=== PATIENT | male | born 1940 | race Caucasian/White ===

== ENCOUNTER 2019-04-19 07:19 | Inpatient (IN) | payer MEDICARE ==
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
[2019-04-19 08:45] LABS: ABSOLUTE LYMPHOCYTES (AUTO) 0.8 10^3/uL (0.5-4.7); ABSOLUTE MONOCYTES (AUTO) 0.9 10^3/uL (0.1-1.4); ABSOLUTE NEUT (AUTO) 11.3 10^3/uL (1.7-8.2); BASOPHILS % (AUTO) 0.1 % (0-2); EOSINOPHILS % (AUTO) 0.1 % (0-6); HEMATOCRIT 34.7 % (37.9-51.0); HEMOGLOBIN 11.6 g/dL (13.5-17.0); LYMPHOCYTES % (AUTO) 6.4 % (13-45); MEAN CORPUSCULAR HEMOGLOBIN 30.1 pg (27.0-33.4); MEAN CORPUSCULAR HGB CONC 33.5 g/dL (32.0-36.0); MEAN CORPUSCULAR VOLUME 90 fl (80-97); MONOCYTES % (AUTO) 7.2 % (3-13); PLATELET COUNT 188 10^3/uL (150-450); RED BLOOD COUNT 3.86 10^6/uL (4.35-5.55); RED CELL DISTRIBUTION WIDTH 14.6 % (11.5-14.0); SEGMENTED NEUTROPHILS % (AUTO) 86.2 % (42-78); TOTAL CELLS COUNTED % (AUTO) 100 %
[2019-04-19 08:51] LABS: INTERNATIONAL RATION (INR) 1.07; PARTIAL THROMBOPLASTIN TIME 27.9 SEC (23.5-35.8); PROTHROMBIN TIME 14.5 SEC (11.4-15.4)
[2019-04-19 08:55] LABS: ALANINE AMINOTRANSFERASE 41 U/L (21-72); ALBUMIN 2.3 g/dL (3.5-5.0); ALKALINE PHOSPHATASE 54 U/L (38-126); ANION GAP 5 (5-19); ASPARTATE AMINO TRANSFERASE 27 U/L (17-59); BILIRUBIN,DIRECT 0.5 mg/dL (0.0-0.4); BILIRUBIN,TOTAL 0.9 mg/dL (0.2-1.3); BLOOD UREA NITROGEN 13 mg/dL (7-20); CALCIUM 7.7 mg/dL (8.4-10.2); CARBON DIOXIDE 24 mmol/L (22-30); CHLORIDE 96 mmol/L (98-107); CREATINE KINASE 24 U/L (55-170); GLUCOSE 127 mg/dL (75-110); POTASSIUM 4.3 mmol/L (3.6-5.0); SODIUM 125.3 mmol/L (137-145); TOTAL PROTEIN 4.7 g/dL (6.3-8.2)
--- NOTE | 2019-04-19 08:55 | RADIOLOGY REPORT (SQ) ---
EXAM DESCRIPTION: CT HEAD WITHOUT COMPLETED DATE/TIME: 04/19/2019 8:40 am REASON FOR STUDY: stroke like symptoms COMPARISON: 04/12/2016 TECHNIQUE: Axial images acquired through the brain without intravenous contrast. Images reviewed wi th bone, brain and subdural windows. Additional sagittal and coronal reconstructions were generated. Images stored on PACS. All CT scanners at this facility use dose modulation, iterative reconstruction, and/or weight based d osing when appropriate to reduce radiation dose to as low as reasonably achievable (ALARA). [facility]: Dose Right [facility]: CareDose [facility]: Dose Right [facility]: Teradose 4D [facility]: Logicworks RADIATION DOSE: CT Rad equipment meets quality standard of care and radiation dose reduction techniq ues were employed. CTDIvol: 53.2 mGy. DLP: 1070 mGy-cm.mGy. LIMITATIONS: None. FINDINGS: VENTRICLES: Prominent. CEREBRUM: No masses. No hemorrhage. No midline shift. Areas of low density in the white matter mos t likely due to chronic micro-vascular ischemic change. No evidence for acute infarction. Large old right MCA infarct is again noted. CEREBELLUM: No masses. No hemorrhage. No alteration of density. No evidence for acute infarction. EXTRAAXIAL SPACES: Age-related involutional change. No fluid collections. No masses. ORBITS AND GLOBE: No intra- or extraconal masses. Normal contour of globe without masses. CALVARIUM: No fracture. PARANASAL SINUSES: No fluid or mucosal thickening. SOFT TISSUES: No mass or hematoma. OTHER: No other significant finding. IMPRESSION: Diffuse cerebral atrophy and small-vessel ischemic changes. Large old right MCA infarct . No acute intracranial event. EVIDENCE OF ACUTE STROKE: NO. TECHNICAL DOCUMENTATION: JOB ID: [id number] Quality ID # [id number]: Final reports with documentation of one or more dose reduction techniques (e.g., Au tomated exposure control, adjustment of the mA and/or kV according to patient size, use of iterative reconstruction technique) 2010 [employer]- All Rights Reserved Reading location - IP/workstation name: [email or web address]
--- NOTE | 2019-04-19 08:56 | RADIOLOGY REPORT (SQ) ---
EXAM DESCRIPTION: CHEST SINGLE VIEW COMPLETED DATE/TIME: 04/19/2019 8:48 am REASON FOR STUDY: syncope COMPARISON: 04/12/2016 NUMBER OF VIEWS: One view. TECHNIQUE: Single frontal radiographic view of the chest acquired. LIMITATIONS: None. FINDINGS: LUNGS AND PLEURA: No opacities, masses or pneumothorax. No pleural effusion. MEDIASTINUM AND HILAR STRUCTURES: No masses. Contour normal. HEART AND VASCULAR STRUCTURES: Heart size is stable slightly enlarged. No failure. BONES: No acute findings. HARDWARE: None in the chest. OTHER: No other significant finding. IMPRESSION: NO SIGNIFICANT RADIOGRAPHIC FINDING IN THE CHEST. TECHNICAL DOCUMENTATION: JOB ID: [id number] [employer]- All Rights Reserved Reading location - IP/workstation name: [email or web address]
[2019-04-19 09:07] LABS: CREATINE KINASE MB 0.81 ng/mL (<4.55)
[2019-04-19 09:08] LABS: TROPONIN I < 0.012 ng/mL
[2019-04-19] MEDS: NORMAL SALINE 1000 ML 1,000 ML IV PRN ×3 (09:18→12:47)
[2019-04-19 09:36] LABS: APPEARANCE,URINE CLOUDY; BILIRUBIN,URINE NEGATIVE (NEGATIVE); COLOR,URINE YELLOW; GLUCOSE, URINE NEGATIVE (NEGATIVE); KETONES,URINE NEGATIVE (NEGATIVE); LEUKOCYTE ESTERASE,URINE MODERATE (NEGATIVE); NITRITE,URINE POSITIVE (NEGATIVE); PROTEIN,URINE 30 mg/dL (NEGATIVE); URINE SPECIFIC GRAVITY 1.013
[2019-04-19] MEDS ORDERED: CEFTRIAXONE 1 GM/D5W RTU 1 GM/50 ML RTUPB IV ONE (10:22)
[2019-04-19] MEDS ORDERED: LEVOFLOXACIN 500 MG/D5W RTU 500 MG/100 ML RTUPB IV SCH (11:30)
[2019-04-19] MEDS ORDERED: LEVALBUTEROL HCL NEB 0.63 MG/3 ML AMPUL NEB PRN (12:18)
--- NOTE | 2019-04-19 12:48 | PDOC H&P ---
History of Present Illness Admission Date/PCP: 04/19/19 12:18 Patient complains of: Came in c/o with difficulty in standing and weakness. History of Present Illness: ZOEY GRIER is a 78 year old male with history of 2 strokes involving the left side of the body he walks with assistance and a cane, hyperlipidemia, atrial fibrillation not on anticoagulation brought in by family with complaints of difficulty in ambulation unsteady gait. No history of falls at home no headaches reported. After calling the EMS he threw up 4 times small amount of liquidy material. No constipation reported no abdominal pain was reported no shortness of breath no chest pains reported. Patient has this bullous 5 regard lesions and as per the product examiner the taking is taking prednisone p.o. No history of fever at home. In the emergency room patient has a low-grade fever septic work-up was initiated lactic acid is 2.1 found to have blood pressure of systolic 70/50 and started on IV fluids. medical consult was called for further management. Past Medical History Cardiac Medical History: Reports: Hyperlipidema, Hypertension Pulmonary Medical History: Denies: Tuberculosis Endocrine Medical History: Reports: Diabetes Mellitus Type 2 Psychiatric Medical History: Reports: Depression Past Surgical History Past Surgical History: Reports: Orthopedic Surgery Denies: Appendectomy, Cholecystectomy, Tonsillectomy Social History Lives with: Spouse/Significant other Smoking Status: Unknown if Ever Smoked Frequency of Alcohol Use: None Hx Recreational Drug Use: No Drugs: None Hx Prescription Drug Abuse: No - Advance Directive Resuscitation Status: Full Code Surrogate healthcare decision maker:: Stacy Rizzo has the power of health care attorney. Family History Family History: Reviewed & Not Pertinent Parental Family History Reviewed: Yes - Family history of stroke and hypertension. Children Family History Reviewed: Yes Sibling(s) Family History Reviewed.: Yes Medication/Allergy Home Medications: Amlodipine Besylate [Norvasc 5 mg Tablet] 5 mg PO DAILY 04/19/19 Aspirin [Aspirin 325 mg Tablet] 325 mg PO DAILY 04/19/19 Carvedilol [Coreg 3.125 mg Tablet] 3.125 mg PO Q12 04/19/19 Fluoxetine HCl [Prozac 20 mg Capsule] 20 mg PO DAILY 04/19/19 Gabapentin [Neurontin 100 mg Capsule] 100 mg PO Q8 04/19/19 Lisinopril [Prinivil 2.5 mg Tablet] 2.5 mg PO DAILY 04/19/19 Prednisone [Deltasone 20 mg Tablet] 20 mg PO DAILY 04/19/19 Simvastatin [Zocor 40 mg Tablet] 40 mg PO DAILY 04/19/19 Tamsulosin HCl [Flomax 0.4 mg Cap.sr] 0.4 mg PO QHS 04/19/19 Allergies/Adverse Reactions: atorvastatin calcium [From Lipitor] Allergy (Verified 04/12/16 07:49) Review of Systems Constitutional: PRESENT: fatigue, weakness. ABSENT: fever(s), headache(s) Eyes: ABSENT: visual disturbances Ears: ABSENT: hearing changes Nose, Mouth, and Throat: ABSENT: sore throat Cardiovascular: ABSENT: chest pain, dyspnea on exertion, edema, orthropnea, palpitations Respiratory: ABSENT: cough, hemoptysis Gastrointestinal: PRESENT: nausea, vomiting Musculoskeletal: ABSENT: joint swelling Neurological: PRESENT: dizziness, weakness Psychiatric: ABSENT: anxiety, depression, homidical ideation, suicidal ideation Physical Exam Vital Signs: Temp Pulse Resp BP Pulse Ox 99.4 F 23 H 99/60 L 100 04/19/19 07:42 04/19/19 12:01 04/19/19 12:01 04/19/19 12:01 Intake & Output 04/18/19 04/19/19 04/20/19 06:59 06:59 06:59 Intake Total 2049 Balance 2049 Weight 65.4 kg General appearance: PRESENT: no acute distress Head exam: PRESENT: atraumatic Eye exam: PRESENT: PERRLA Neck exam: ABSENT: carotid bruit, JVD, lymphadenopathy, thyromegaly Respiratory exam: PRESENT: decreased breath sounds Cardiovascular exam: PRESENT: tachycardia GI/Abdominal exam: PRESENT: normal bowel sounds, soft. ABSENT: distended, guarding, mass, organolmegaly, rebound, tenderness Rectal exam: PRESENT: deferred Extremities exam: PRESENT: full ROM. ABSENT: calf tenderness, clubbing, pedal edema Neurological exam: PRESENT: alert, other - Patient has history of stroke involving the left side of the body. Psychiatric exam: PRESENT: appropriate affect, normal mood. ABSENT: homicidal ideation, suicidal ideation Results Laboratory Results: 04/19/19 07:34 04/19/19 07:34 04/19/19 04/19/19 04/19/19 07:34 07:34 09:14 WBC 13.0 H RBC 3.86 L Hgb 11.6 L Hct 34.7 L MCV 90 MCH 30.1 MCHC 33.5 RDW 14.6 H Plt Count 188 Seg Neutrophils % 86.2 H Lymphocytes % 6.4 L Monocytes % 7.2 Eosinophils % 0.1 Basophils % 0.1 Absolute Neutrophils 11.3 H Absolute Lymphocytes 0.8 Absolute Monocytes 0.9 Absolute Eosinophils 0.0 Absolute Basophils 0.0 Sodium 125.3 L Potassium 4.3 Chloride 96 L Carbon Dioxide 24 Anion Gap 5 BUN 13 Creatinine 0.76 Est GFR ( Amer) > 60 Est GFR (Non-Af Amer) > 60 Glucose 127 H Lactic Acid Calcium 7.7 L Total Bilirubin 0.9 AST 27 ALT 41 Alkaline Phosphatase 54 Total Protein 4.7 L Albumin 2.3 L Urine Color YELLOW Urine Appearance CLOUDY Urine pH 9.0 Ur Specific [place] 1.013 Urine Protein 30 H Urine Glucose (UA) NEGATIVE Urine Ketones NEGATIVE Urine Blood NEGATIVE Urine Nitrite POSITIVE H Ur Leukocyte Esterase MODERATE H Urine WBC (Auto) 53 Urine RBC (Auto) 59 04/19/19 10:05 WBC RBC Hgb Hct MCV MCH MCHC RDW Plt Count Seg Neutrophils % Lymphocytes % Monocytes % Eosinophils % Basophils % Absolute Neutrophils Absolute Lymphocytes Absolute Monocytes Absolute Eosinophils Absolute Basophils Sodium Potassium Chloride Carbon Dioxide Anion Gap BUN Creatinine Est GFR ( Amer) Est GFR (Non-Af Amer) Glucose Lactic Acid 2.1 Calcium Total Bilirubin AST ALT Alkaline Phosphatase Total Protein Albumin Urine Color Urine Appearance Urine pH Ur Specific [place] Urine Protein Urine Glucose (UA) Urine Ketones Urine Blood Urine Nitrite Ur Leukocyte Esterase Urine WBC (Auto) Urine RBC (Auto) 04/19/19 04/19/19 07:34 07:34 Creatine Kinase 24 L CK-MB (CK-2) 0.81 Troponin I < 0.012 Impressions: Chest X-Ray 04/19/19 08:12 IMPRESSION: NO SIGNIFICANT RADIOGRAPHIC FINDING IN THE CHEST. Head CT 04/19/19 08:12 IMPRESSION: Diffuse cerebral atrophy and small-vessel ischemic changes. Large old right MCA infarct. No acute intracranial event. EVIDENCE OF ACUTE STROKE: NO. Assessment and Plan - Diagnosis (1) Sepsis associated hypotension Is this a current diagnosis for this admission?: Yes Plan: 04/19/2019-most likely patient has a sepsis with hypotension. Unable to find the source. WBC count is within normal limits and lactic acid level is within normal limits. Patient has hyponatremia. Plan started on IV fluids normal saline at 75 cc/h, IV Rocephin 2 g daily, IV Levaquin 5 mg daily. Blood cultures urine cultures are pending. GI prophylaxis DVT prophylaxis initiated. (2) Atrial fibrillation Qualifiers: Atrial fibrillation type: unspecified Qualified Code(s): I48.91 - Unspecified atrial fibrillation Is this a current diagnosis for this admission?: No Plan: 04/19/2019-patient has history of atrial fibrillation not on anticoagulation. he is on Coreg 3.25 mg twice daily at home which was resumed. (3) History of CVA with residual deficit Is this a current diagnosis for this admission?: No Plan: 04/19/2019-patient has history of CVA 6 years ago involving the left side of the body power in the left upper arm is 1 /5 and the left lower leg is 2 x 5. Patient walks with assistance. (4) HTN (hypertension) Is this a current diagnosis for this admission?: No Plan: 04/19/2019-patient has history of hypertension he is on Coreg, lisinopril and amlodipine at home to restart Coreg and hold her lisinopril and amlodipine for today because of the low blood pressures with systolic blood pressure of 70. (5) Vomiting Qualifiers: Vomiting type: unspecified Vomiting Intractability: unspecified Nausea presence: without nausea Qualified Code(s): R11.11 - Vomiting without nausea Is this a current diagnosis for this admission?: Yes Plan: 04/19/2019-patient came in with complaints of nausea and vomitings vomited 4 times this morning plan is to do the KUB. Because of nausea and vomiting's unknown at this time. (6) Hyponatremia Is this a current diagnosis for this admission?: Yes Plan: 04/19/2019-serum sodium is 125 hyponatremia most likely secondary to poor oral intake associated with nausea and vomiting. Started on IV fluids normal saline 125 cc/h. - Time Time Spent with patient: 25-34 minutes Medications reviewed and adjusted accordingly: Yes Anticipated discharge: Home
[2019-04-19 13:54] LABS: CREATINE KINASE MB 2.71 ng/mL (<4.55); TROPONIN I 0.013 ng/mL
[2019-04-19] MEDS: GABAPENTIN 100 MG CAPSULE PO SCH ×2 (14:48→21:42)
--- NOTE | 2019-04-19 18:40 | EKG REPORT ---
SEVERITY:- ABNORMAL ECG - ATRIAL FIBRILLATION : Confirmed by: Que Sears MD 19-Apr-2019 18:40:12
[2019-04-19] MEDS: FAMOTIDINE 20 MG TABLET PO SCH (21:42)
[2019-04-19] MEDS: TAMSULOSIN HCL 0.4 MG CAP.SR.24H PO SCH (21:42)
[2019-04-19] MEDS: CARVEDILOL 3.125 MG TABLET PO SCH (21:42)
[2019-04-20] MEDS: NORMAL SALINE 1000 ML 1,000 ML IV PRN (03:00)
[2019-04-20 05:51] LABS: ABSOLUTE LYMPHOCYTES (AUTO) 0.7 10^3/uL (0.5-4.7); ABSOLUTE MONOCYTES (AUTO) 0.8 10^3/uL (0.1-1.4); BASOPHILS % (AUTO) 0.1 % (0-2); EOSINOPHILS % (AUTO) 0.4 % (0-6); HEMATOCRIT 31.3 % (37.9-51.0); HEMOGLOBIN 10.5 g/dL (13.5-17.0); LYMPHOCYTES % (AUTO) 5.7 % (13-45); MEAN CORPUSCULAR HEMOGLOBIN 30.2 pg (27.0-33.4); MEAN CORPUSCULAR HGB CONC 33.5 g/dL (32.0-36.0); MEAN CORPUSCULAR VOLUME 90 fl (80-97); MONOCYTES % (AUTO) 6.5 % (3-13); PLATELET COUNT 155 10^3/uL (150-450); RED BLOOD COUNT 3.48 10^6/uL (4.35-5.55); RED CELL DISTRIBUTION WIDTH 14.7 % (11.5-14.0); SEGMENTED NEUTROPHILS % (AUTO) 87.3 % (42-78); TOTAL CELLS COUNTED % (AUTO) 100 %; WHITE BLOOD COUNT 12.6 10^3/uL (4.0-10.5)
[2019-04-20 06:17] LABS: ALANINE AMINOTRANSFERASE 31 U/L (21-72); ALKALINE PHOSPHATASE 50 U/L (38-126); ANION GAP 5 (5-19); ASPARTATE AMINO TRANSFERASE 15 U/L (17-59); BILIRUBIN,DIRECT 0.3 mg/dL (0.0-0.4); BILIRUBIN,TOTAL 0.5 mg/dL (0.2-1.3); BLOOD UREA NITROGEN 12 mg/dL (7-20); CALCIUM 7.7 mg/dL (8.4-10.2); CARBON DIOXIDE 21 mmol/L (22-30); CHLORIDE 100 mmol/L (98-107); GLUCOSE 135 mg/dL (75-110); POTASSIUM 4.3 mmol/L (3.6-5.0); SODIUM 125.5 mmol/L (137-145); TOTAL PROTEIN 4.2 g/dL (6.3-8.2)
[2019-04-20] MEDS: GABAPENTIN 100 MG CAPSULE PO SCH ×3 (06:28→21:57)
[2019-04-20 09:59] LABS: URINE CREATININE 15.9 mg/dL (22-328)
[2019-04-20] MEDS ORDERED: ASPIRIN 81 MG TABLET, CHEWABLE PO SCH (10:00)
[2019-04-20] MEDS ORDERED: (PENDING PHARMACY ID) (Lisinopril [Prinivil 2.5 Mg Tablet] 2.5 MG) PO SCH (10:00)
[2019-04-20] MEDS ORDERED: ASPIRIN 325 MG TABLET PO SCH (10:00)
[2019-04-20] MEDS ORDERED: SIMVASTATIN 40 MG TABLET PO SCH (10:00)
[2019-04-20] MEDS ORDERED: LISINOPRIL 5 MG TABLET PO SCH (10:00)
[2019-04-20] MEDS ORDERED: LEVOFLOXACIN 500 MG/D5W RTU 500 MG/100 ML RTUPB IV SCH (10:00)
[2019-04-20] MEDS: PREDNISONE 20 MG TABLET PO SCH (11:21)
[2019-04-20] MEDS: FAMOTIDINE 20 MG TABLET PO SCH ×2 (11:22→21:57)
[2019-04-20] MEDS: ENOXAPARIN SODIUM INJ 40 MG/0.4 ML DISP.SYRIN SUBCUT SCH (11:22)
[2019-04-20] MEDS: FLUOXETINE HCL 20 MG CAPSULE PO SCH (11:22)
[2019-04-20] MEDS: ASPIRIN 325 MG TABLET PO SCH (11:22)
[2019-04-20] MEDS: CEFTRIAXONE 2 GM/D5W RTU 2 GM/50 ML RTUPB IV SCH (11:22)
[2019-04-20] MEDS: CARVEDILOL 3.125 MG TABLET PO SCH ×2 (11:22→21:57)
[2019-04-20 14:24] LABS: APPEARANCE,URINE CLEAR; BILIRUBIN,URINE NEGATIVE (NEGATIVE); COLOR,URINE STRAW; GLUCOSE, URINE >=500 mg/dL (NEGATIVE); KETONES,URINE NEGATIVE (NEGATIVE); LEUKOCYTE ESTERASE,URINE SMALL (NEGATIVE); NITRITE,URINE NEGATIVE (NEGATIVE); PROTEIN,URINE NEGATIVE (NEGATIVE); URINE SPECIFIC GRAVITY 1.005; UROBILINOGEN,URINE NEGATIVE mg/dL (<2.0)
--- NOTE | 2019-04-20 15:20 | PDOC PROGRESS REPORT ---
Subjective Progress Note for:: 04/20/19 Subjective:: ZOEY GRIER is a 78 year old male with history of 2 strokes involving the left side of the body he walks with assistance and a cane, hyperlipidemia, atrial fibrillation not on anticoagulation brought in by family with complaints of difficulty in ambulation unsteady gait. No history of falls at home no headaches reported. After calling the EMS he threw up 4 times small amount of liquidy material. No constipation reported no abdominal pain was reported no shortness of breath no chest pains reported. Patient has this bullous 5 regard lesions and as per the fitting room inspector the taking is taking prednisone p.o. No history of fever at home. In the emergency room patient has a low-grade fever septic work-up was initiated lactic acid is 2.1 found to have blood pressure of systolic 70/50 and started on IV fluids. medical consult was called for further management. 04/20/2019. Assumed care today. Vitals within normal limits, patient alert oriented x3 in no apparent distress, denies any fever, chills, nausea, vomiting, diarrhea, constipation or any urinary symptoms. SBP 855003, T-max 97.4, pulse 5568, RR 1618, SPO2 98% RA. WBC 8.0, hemoglobin 11.2, platelets 170, calcium 7.9, proBNP 2360, urine creatinine 15.9, urine sodium 68, globin A1c 6.3, Reason For Visit: HYPOTENSION Physical Exam Vital Signs: Temp Pulse Resp BP Pulse Ox 99.0 F 70 16 133/74 H 98 04/20/19 07:37 04/20/19 07:37 04/20/19 07:37 04/20/19 07:37 04/20/19 07:37 Intake & Output 04/19/19 04/20/19 04/21/19 06:59 06:59 06:59 Intake Total 3350 478 Output Total 1150 Balance 2200 478 Weight 66.1 kg General appearance: PRESENT: no acute distress, well-developed, well-nourished Head exam: PRESENT: atraumatic, normocephalic Respiratory exam: PRESENT: clear to auscultation yue. ABSENT: rales, rhonchi, wheezes Cardiovascular exam: PRESENT: RRR. ABSENT: diastolic murmur, rubs, systolic murmur GI/Abdominal exam: PRESENT: normal bowel sounds, soft. ABSENT: distended, guarding, mass, organolmegaly, rebound, tenderness Extremities exam: PRESENT: full ROM. ABSENT: calf tenderness, clubbing, pedal edema Neurological exam: PRESENT: alert, awake, oriented to person, oriented to place, oriented to time, CN II-XII grossly intact. ABSENT: motor sensory deficit - Le ft-sided hemiparesis. Chronic. Skin exam: PRESENT: other - Numerous scaly lesions residual from recent pemphigoid flare. Does not seem to be infected. Results Laboratory Results: 04/20/19 05:21 04/20/19 05:21 04/19/19 04/20/19 04/20/19 14:53 05:21 05:21 WBC 12.6 H RBC 3.48 L Hgb 10.5 L Hct 31.3 L MCV 90 MCH 30.2 MCHC 33.5 RDW 14.7 H Plt Count 155 Seg Neutrophils % 87.3 H Lymphocytes % 5.7 L Monocytes % 6.5 Eosinophils % 0.4 Basophils % 0.1 Absolute Neutrophils 11.0 H Absolute Lymphocytes 0.7 Absolute Monocytes 0.8 Absolute Eosinophils 0.0 Absolute Basophils 0.0 Sodium 125.5 L Potassium 4.3 Chloride 100 Carbon Dioxide 21 L Anion Gap 5 BUN 12 Creatinine 0.59 Est GFR ( Amer) > 60 Est GFR (Non-Af Amer) > 60 Glucose 135 H Lactic Acid 1.5 Calcium 7.7 L Total Bilirubin 0.5 AST 15 L ALT 31 Alkaline Phosphatase 50 Total Protein 4.2 L Albumin 2.0 L Urine Color Urine Appearance Urine pH Ur Specific [place] Urine Protein Urine Glucose (UA) Urine Ketones Urine Blood Urine Nitrite Ur Leukocyte Esterase Urine WBC (Auto) Urine RBC (Auto) 04/20/19 09:06 WBC RBC Hgb Hct MCV MCH MCHC RDW Plt Count Seg Neutrophils % Lymphocytes % Monocytes % Eosinophils % Basophils % Absolute Neutrophils Absolute Lymphocytes Absolute Monocytes Absolute Eosinophils Absolute Basophils Sodium Potassium Chloride Carbon Dioxide Anion Gap BUN Creatinine Est GFR ( Amer) Est GFR (Non-Af Amer) Glucose Lactic Acid Calcium Total Bilirubin AST ALT Alkaline Phosphatase Total Protein Albumin Urine Color STRAW Urine Appearance CLEAR Urine pH 7.0 Ur Specific [place] 1.005 Urine Protein NEGATIVE Urine Glucose (UA) >=500 H Urine Ketones NEGATIVE Urine Blood NEGATIVE Urine Nitrite NEGATIVE Ur Leukocyte Esterase SMALL H Urine WBC (Auto) 9 Urine RBC (Auto) 0 04/19/19 04/19/19 04/19/19 07:34 07:34 12:13 Creatine Kinase 24 L CK-MB (CK-2) 0.81 2.71 Troponin I < 0.012 0.013 NT-Pro-B Natriuret Pep 04/20/19 05:21 Creatine Kinase CK-MB (CK-2) Troponin I NT-Pro-B Natriuret Pep 2360 H Impressions: Chest X-Ray 04/19/19 08:12 IMPRESSION: NO SIGNIFICANT RADIOGRAPHIC FINDING IN THE CHEST. Head CT 04/19/19 08:12 IMPRESSION: Diffuse cerebral atrophy and small-vessel ischemic changes. Large old right MCA infarct. No acute intracranial event. EVIDENCE OF ACUTE STROKE: NO. Assessment and Plan - Diagnosis (1) Sepsis associated hypotension Is this a current diagnosis for this admission?: Yes Plan: Most likely source UTI. Vitals within normal limits. Day 2 IV ceftriaxone. Cultures no growth so far. Follow-up cultures. Will obtain urine culture. Continue telemetry, monitor volume status, continue IV fluids guided by volume status. (2) Hyponatremia Is this a current diagnosis for this admission?: Yes Plan: Hypovolemic hyponatremia. 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 Unsure how long he has been on steroids. Restart steroids. Consult nephrology. Daily BMP, monitor for seizures. (3) Urinary tract infection Qualifiers: Urinary tract infection type: site unspecified Hematuria presence: without hematuria Qualified Code(s): N39.0 - Urinary tract infection, site not specified Is this a current diagnosis for this admission?: Yes Plan: Likely due to gram-negative rods including E. coli. Day 2 IV ceftriaxone. Blood cultures negative so far. Urine culture are ordered. (4) Diabetes mellitus type 2 in nonobese Is this a current diagnosis for this admission?: No Plan: Hemoglobin A1c 6.4. Likely worsened by chronic steroid use for bullous pemphigoid. Continue Accu-Chek, diabetic diet, sliding scale insulin, pre-meal insulin, long-acting insulin. Outpatient PCP follow-up. (5) History of CVA with residual deficit Is this a current diagnosis for this admission?: No Plan: History of right CVA. History of right carotid occlusion. Persistent left-sided hemiparesis. Continue aspirin, high intensity statins, monitor BP. Continue physical therapy. Patient has good care at home, lives with a partner who is also POA. (6) Hyperlipidemia Is this a current diagnosis for this admission?: No Plan: ASCVD 63.5%. Continue simvastatin 80 mg p.o. daily. Continue diet and lifestyle modification. Patient is allergic to atorvastatin. (7) Atrial fibrillation Qualifiers: Atrial fibrillation type: unspecified Qualified Code(s): I48.91 - Unspecified atrial fibrillation Is this a current diagnosis for this admission?: No Plan: History of chronic A. fib. CHADs Score 6 Rate controlled. Not anticoagulated. Continue beta-blockers, aspirin, statins. (8) Carotid stenosis, right Is this a current diagnosis for this admission?: No Plan: History of right carotid occlusion. Patient has refused endarterectomy in the past. Continue statins, aspirin, optimize blood pressure. (9) HTN (hypertension) Is this a current diagnosis for this admission?: No Plan: Euvolemic. Continue Coreg, lisinopril, adjust meds as needed. Outpatient PCP follow-up. (10) Hx of pemphigoid Is this a current diagnosis for this admission?: No Plan: Continue steroids. Currently not on flare. As per family patient is on a taper dose. Contact fitting room inspector.
[2019-04-20 15:50] LABS: ANION GAP 5 (5-19); BLOOD UREA NITROGEN 10 mg/dL (7-20); CALCIUM 7.8 mg/dL (8.4-10.2); CARBON DIOXIDE 22 mmol/L (22-30); CHLORIDE 99 mmol/L (98-107); GLUCOSE 217 mg/dL (75-110); POTASSIUM 4.4 mmol/L (3.6-5.0); SODIUM 126.1 mmol/L (137-145)
[2019-04-20] MEDS: SIMVASTATIN 40 MG TABLET PO SCH (21:56)
[2019-04-20] MEDS: TAMSULOSIN HCL 0.4 MG CAP.SR.24H PO SCH (21:57)
[2019-04-21] MEDS: GABAPENTIN 100 MG CAPSULE PO SCH ×3 (05:07→21:07)
[2019-04-21 06:06] LABS: HEMATOCRIT 33.2 % (37.9-51.0); HEMOGLOBIN 11.2 g/dL (13.5-17.0); MEAN CORPUSCULAR HEMOGLOBIN 30.3 pg (27.0-33.4); MEAN CORPUSCULAR HGB CONC 33.9 g/dL (32.0-36.0); MEAN CORPUSCULAR VOLUME 90 fl (80-97); PLATELET COUNT 170 10^3/uL (150-450); RED BLOOD COUNT 3.71 10^6/uL (4.35-5.55); RED CELL DISTRIBUTION WIDTH 14.7 % (11.5-14.0)
[2019-04-21 06:17] LABS: ALANINE AMINOTRANSFERASE 27 U/L (21-72); ALBUMIN 2.2 g/dL (3.5-5.0); ALKALINE PHOSPHATASE 58 U/L (38-126); ANION GAP 5 (5-19); ASPARTATE AMINO TRANSFERASE 13 U/L (17-59); BILIRUBIN,DIRECT 0.3 mg/dL (0.0-0.4); BILIRUBIN,TOTAL 0.3 mg/dL (0.2-1.3); BLOOD UREA NITROGEN 12 mg/dL (7-20); CALCIUM 7.9 mg/dL (8.4-10.2); CARBON DIOXIDE 21 mmol/L (22-30); CHLORIDE 100 mmol/L (98-107); GLUCOSE 251 mg/dL (75-110); POTASSIUM 4.5 mmol/L (3.6-5.0); SODIUM 126.2 mmol/L (137-145); TOTAL PROTEIN 4.6 g/dL (6.3-8.2)
[2019-04-21 06:53] LABS: ABSOLUTE LYMPHOCYTES# (MANUAL) 0.3 10^3/uL (0.5-4.7); ABSOLUTE MONOCYTES # (MANUAL) 0.2 10^3/uL (0.1-1.4); BASOPHILS % (MANUAL) 0 % (0-2); EOSINOPHILS % (MANUAL) 1 % (0-6); LYMPHOCYTES % (MANUAL) 4 % (13-45); MONOCYTES % (MANUAL) 3 % (3-13); PLATELET COMMENT ADEQUATE; SEGMENTED NEUTROPHILS % (MAN) 92 % (42-78); TOTAL CELLS COUNTED 100
[2019-04-21 06:54] LABS: ANISOCYTOSIS SLIGHT; BURR CELLS 1+; OVALOCYTES SLIGHT
[2019-04-21] MEDS: ASPIRIN 325 MG TABLET PO SCH (10:09)
[2019-04-21] MEDS: PREDNISONE 20 MG TABLET PO SCH (10:10)
[2019-04-21] MEDS: FLUOXETINE HCL 20 MG CAPSULE PO SCH (10:10)
[2019-04-21] MEDS: FAMOTIDINE 20 MG TABLET PO SCH ×2 (10:10→21:07)
[2019-04-21] MEDS: CARVEDILOL 3.125 MG TABLET PO SCH ×2 (10:10→21:07)
[2019-04-21] MEDS: CEFTRIAXONE 2 GM/D5W RTU 2 GM/50 ML RTUPB IV SCH (10:11)
[2019-04-21] MEDS: ENOXAPARIN SODIUM INJ 40 MG/0.4 ML DISP.SYRIN SUBCUT SCH (10:15)
--- NOTE | 2019-04-21 10:18 | PDOC PROGRESS REPORT ---
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 No history of falls at home no headaches reported. After calling the EMS he threw up 4 times small amount of liquidy material. No constipation reported no abdominal pain was reported no shortness of breath no chest pains reported. Patient has this bullous 5 regard lesions and as per the neck band setter the taking is taking prednisone p.o. No history of fever at home. In the emergency room patient has a low-grade fever septic work-up was initiated lactic acid is 2.1 found to have blood pressure of systolic 70/50 and started on IV fluids. medical consult was called for further management. 04/20/2019. Assumed care today. Vitals within normal limits, patient alert oriented x3 in no apparent distress, denies any fever, chills, nausea, vomiting, diarrhea, constipation or any urinary symptoms. 04/21/2019. No acute events overnight, patient is accompanied by his partner who is also his POA. She is a primary caregiver. Patient sitting comfortably in his bed in no apparent distress, denies any fever, chills, nausea, vomiting, diarrhea, constipation or any urinary symptoms. Reason For Visit: HYPOTENSION Physical Exam Vital Signs: Temp Pulse Resp BP Pulse Ox 97.4 F 68 16 151/71 H 98 04/21/19 07:35 04/21/19 08:00 04/21/19 08:00 04/21/19 07:35 04/21/19 08:00 Intake & Output 04/20/19 04/21/19 04/22/19 06:59 06:59 06:59 Intake Total 3350 1603 Output Total 1150 2200 Balance 2200 -597 Weight 66.1 kg 64.7 kg General appearance: PRESENT: no acute distress, well-developed, well-nourished Head exam: PRESENT: atraumatic, normocephalic Respiratory exam: PRESENT: clear to auscultation yue. ABSENT: rales, rhonchi, wheezes Cardiovascular exam: PRESENT: RRR. ABSENT: diastolic murmur, rubs, systolic murmur GI/Abdominal exam: PRESENT: normal bowel sounds, soft. ABSENT: distended, guarding, mass, organolmegaly, rebound, tenderness Extremities exam: PRESENT: full ROM. ABSENT: calf tenderness, clubbing, pedal edema Neurological exam: PRESENT: alert, awake, oriented to person, oriented to place, oriented to time, oriented to situation, CN II-XII grossly intact, motor sensory deficit - Left-sided hemiparesis. No acute changes. Skin exam: PRESENT: other - Numerous dry scaly skin lesions residual from healing pemphigoid flare. No signs of infection. Results Laboratory Results: 04/21/19 05:17 04/21/19 05:17 04/20/19 04/20/19 04/21/19 09:06 15:11 05:17 WBC 8.0 RBC 3.71 L Hgb 11.2 L Hct 33.2 L MCV 90 MCH 30.3 MCHC 33.9 RDW 14.7 H Plt Count 170 Seg Neutrophils % Not Reportable Lymphocytes % Not Reportable Monocytes % Not Reportable Eosinophils % Not Reportable Basophils % Not Reportable Absolute Neutrophils Not Reportable Absolute Lymphocytes Not Reportable Absolute Monocytes Not Reportable Absolute Eosinophils Not Reportable Absolute Basophils Not Reportable Sodium 126.1 L Potassium 4.4 Chloride 99 Carbon Dioxide 22 Anion Gap 5 BUN 10 Creatinine 0.55 Est GFR ( Amer) > 60 Est GFR (Non-Af Amer) > 60 Glucose 217 H Calcium 7.8 L Magnesium Total Bilirubin AST ALT Alkaline Phosphatase Total Protein Albumin Urine Color STRAW Urine Appearance CLEAR Urine pH 7.0 Ur Specific [place] 1.005 Urine Protein NEGATIVE Urine Glucose (UA) >=500 H Urine Ketones NEGATIVE Urine Blood NEGATIVE Urine Nitrite NEGATIVE Ur Leukocyte Esterase SMALL H Urine WBC (Auto) 9 Urine RBC (Auto) 0 04/21/19 05:17 WBC RBC Hgb Hct MCV MCH MCHC RDW Plt Count Seg Neutrophils % Lymphocytes % Monocytes % Eosinophils % Basophils % Absolute Neutrophils Absolute Lymphocytes Absolute Monocytes Absolute Eosinophils Absolute Basophils Sodium 126.2 L Potassium 4.5 Chloride 100 Carbon Dioxide 21 L Anion Gap 5 BUN 12 Creatinine 0.49 L Est GFR ( Amer) > 60 Est GFR (Non-Af Amer) > 60 Glucose 251 H Calcium 7.9 L Magnesium 1.9 Total Bilirubin 0.3 AST 13 L ALT 27 Alkaline Phosphatase 58 Total Protein 4.6 L Albumin 2.2 L Urine Color Urine Appearance Urine pH Ur Specific [place] Urine Protein Urine Glucose (UA) Urine Ketones Urine Blood Urine Nitrite Ur Leukocyte Esterase Urine WBC (Auto) Urine RBC (Auto) 04/19/19 04/19/19 04/19/19 07:34 07:34 12:13 Creatine Kinase 24 L CK-MB (CK-2) 0.81 2.71 Troponin I < 0.012 0.013 NT-Pro-B Natriuret Pep 04/20/19 05:21 Creatine Kinase CK-MB (CK-2) Troponin I NT-Pro-B Natriuret Pep 2360 H Impressions: Chest X-Ray 04/19/19 08:12 IMPRESSION: NO SIGNIFICANT RADIOGRAPHIC FINDING IN THE CHEST. Head CT 04/19/19 08:12 IMPRESSION: Diffuse cerebral atrophy and small-vessel ischemic changes. Large old right MCA infarct. No acute intracranial event. EVIDENCE OF ACUTE STROKE: NO. Assessment and Plan - Diagnosis (1) Sepsis associated hypotension Is this a current diagnosis for this admission?: Yes Plan: Most likely source UTI. 04/21/2019: SBP 425859, T-max 97.4, pulse 5568, RR 1618, SPO2 98% RA. WBC 8.0, hemoglobin 11.2, platelets 170, calcium 7.9, proBNP 2360 Day 3 IV ceftriaxone. Blood and urine culture no growth so far. Follow-up cultures. Continue telemetry, monitor volume status, continue IV fluids guided by volume status. (2) Hyponatremia Is this a current diagnosis for this admission?: Yes Plan: Hypovolemic hyponatremia. 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 Unsure how long he has been on steroids. Restart steroids. Consult nephrology. Daily BMP, monitor for seizures. (3) Urinary tract infection Qualifiers: Urinary tract infection type: site unspecified Hematuria presence: without hematuria Qualified Code(s): N39.0 - Urinary tract infection, site not specified Is this a current diagnosis for this admission?: Yes Plan: Likely due to gram-negative rods including E. coli. Day 3/5 IV ceftriaxone. Blood cultures negative so far. Urine culture are ordered. (4) Diabetes mellitus type 2 in nonobese Is this a current diagnosis for this admission?: No Plan: Hemoglobin A1c 6.4. Likely worsened by chronic steroid use for bullous pemphigoid. Continue Accu-Chek, diabetic diet, sliding scale insulin, pre-meal insulin, long-acting insulin. Outpatient PCP follow-up. (5) History of CVA with residual deficit Is this a current diagnosis for this admission?: No Plan: History of right CVA. History of right carotid occlusion. Persistent left-sided hemiparesis. Continue aspirin, high intensity statins, monitor BP. Continue physical therapy. Patient has good care at home, lives with a partner who is also POA. (6) Hyperlipidemia Is this a current diagnosis for this admission?: No Plan: ASCVD 63.5%. Continue simvastatin 80 mg p.o. daily. Continue diet and lifestyle modification. Patient is allergic to atorvastatin. (7) Atrial fibrillation Qualifiers: Atrial fibrillation type: unspecified Qualified Code(s): I48.91 - Unspecified atrial fibrillation Is this a current diagnosis for this admission?: No Plan: History of chronic A. fib. CHADs Score 6 Rate controlled. Not anticoagulated. Continue beta-blockers, aspirin, statins. (8) Carotid stenosis, right Is this a current diagnosis for this admission?: No Plan: History of right carotid occlusion. Patient has refused endarterectomy in the past. Continue statins, aspirin, optimize blood pressure. (9) HTN (hypertension) Is this a current diagnosis for this admission?: No Plan: Euvolemic. Continue Coreg, lisinopril, adjust meds as needed. Outpatient PCP follow-up. (10) Hx of pemphigoid Is this a current diagnosis for this admission?: No Plan: Continue steroids. Currently not on flare. As per family patient is on a taper dose. Contact neck band setter.
--- NOTE | 2019-04-21 13:06 | XCELERA REPORT ---
[address] [id number] Transthoracic Echocardiogram Report Name: ZOEY GRIER Age: 78 yrs Gender: Male : 1940 Patient Status: Inpatient Patient Location: [facility]^A Study Date: 04/21/2019 10:34 AM Height: 69 in Weight: 145 lb BSA: 1.8 m2 Reason For Study: acute chf Ordering Physician: AURORA HUNT Performed By: Chago Nelson Interpretation Summary Study quality suboptimal. LVEF appears normal at 65-70%. RV systolic function appears normal. The right ventricular systolic function is normal. The transmitral spectral Doppler flow pattern is abnormal for age. AV leaflets appears focally thickened/calcified with trace to mild aortic regurgitation. There is a mild amount of mitral regurgitation Pericardium not well visualized to rule out small effusion/ pericardial thickening. The aortic root is normal size. MMode/2D Measurements & Calculations RVDd: 2.3 cm LVIDd: 4.8 cm FS: 45.4 % Ao root diam: 3.6 cm IVSd: 1.0 cm LVIDs: 2.6 cm EDV(Teich): 105.5 ml LVPWd: 0.81 cm ESV(Teich): 24.6 ml Ao root area: 10.0 cm2 EF(Teich): 76.6 % LVOT diam: 1.9 cm LVOT area: 2.8 cm2 Doppler Measurements & Calculations MV E max guillermo: MV dec slope: Ao V2 max: LV V1 max P.9 cm/sec 351.8 cm/sec2 154.8 cm/sec 7.9 mmHg MV A max guillermo: MV dec time: 0.24 sec Ao max PG: LV V1 max: 47.5 cm/sec 9.6 mmHg 140.4 cm/sec MV E/A: 1.7 KATINA(V,D): 2.5 cm2 PA V2 max: 89.4 cm/sec PA max P.2 mmHg Left Ventricle The left ventricular ejection fraction is normal. LV EF is 65-70%. The transmitral spectral Doppler flow pattern is abnormal for age. Right Ventricle The right ventricular systolic function is normal. Atria No atrial dimensions provided but visually RA aappears normal sized. No atrial dimensions provided. Mitral Valve MV leaflets appear focally thickened with preserved opening. There is a mild amount of mitral regurgitation. Aortic Valve AV leaflets appear focally thickened/ calcified but appear to open well. There is a peak gradient of 9.58 mm of Hg. There is a trace to mild amount of aortic regurgitation. Tricuspid Valve Partially visualized. Tricuspid regurgitation jet envelope not well defined to measure RV systolic pressure accurately. RVSP could not be estimated. Pulmonic Valve The pulmonic valve is not well visualized. Great Vessels The aortic root is normal size. The inferior vena cava was not well visualized. Effusions Pericardium not well visualized to rule out small effusion/ pericardial thickening. : AURORA HUNT > Arben Crisostomo
[2019-04-21] MEDS: LISINOPRIL 5 MG TABLET PO SCH (14:05)
[2019-04-21] MEDS: SIMVASTATIN 40 MG TABLET PO SCH (21:07)
[2019-04-21] MEDS: TAMSULOSIN HCL 0.4 MG CAP.SR.24H PO SCH (21:07)
[2019-04-22] MEDS: GABAPENTIN 100 MG CAPSULE PO SCH ×3 (05:48→21:18)
[2019-04-22 08:09] LABS: BLOOD UREA NITROGEN 10 mg/dL (7-20); CALCIUM 8.3 mg/dL (8.4-10.2); CHLORIDE 99 mmol/L (98-107); GLUCOSE 168 mg/dL (75-110); POTASSIUM 4.3 mmol/L (3.6-5.0)
[2019-04-22 08:15] LABS: CARBON DIOXIDE 24 mmol/L (22-30); SODIUM 127.4 mmol/L (137-145)
[2019-04-22 08:18] LABS: ANION GAP 4 (5-19)
[2019-04-22] MEDS: CEFTRIAXONE 2 GM/D5W RTU 2 GM/50 ML RTUPB IV SCH (09:42)
[2019-04-22] MEDS: ASPIRIN 325 MG TABLET PO SCH (09:43)
[2019-04-22] MEDS: PREDNISONE 20 MG TABLET PO SCH (09:43)
[2019-04-22] MEDS: FAMOTIDINE 20 MG TABLET PO SCH ×2 (09:43→21:18)
[2019-04-22] MEDS: CARVEDILOL 3.125 MG TABLET PO SCH ×2 (09:43→21:18)
[2019-04-22] MEDS: FLUOXETINE HCL 20 MG CAPSULE PO SCH (09:43)
[2019-04-22] MEDS: ENOXAPARIN SODIUM INJ 40 MG/0.4 ML DISP.SYRIN SUBCUT SCH (09:44)
--- NOTE | 2019-04-22 10:15 | PDOC PROGRESS REPORT ---
Subjective Progress Note for:: 04/22/19 Subjective:: ZOEY GRIER is a 78 year old male with history of 2 strokes involving the left side of the body he walks with assistance and a cane, hyperlipidemia, atrial fibrillation not on anticoagulation brought in by family with complaints of difficulty in ambulation unsteady gait. No history of falls at home no headaches reported. After calling the EMS he threw up 4 times small amount of liquidy material. No constipation reported no abdominal pain was reported no shortness of breath no chest pains reported. Patient has this bullous 5 regard lesions and as per the school crossing guard supervisor the taking is taking prednisone p.o. No history of fever at home. In the emergency room patient has a low-grade fever septic work-up was initiated lactic acid is 2.1 found to have blood pressure of systolic 70/50 and started on IV fluids. medical consult was called for further management. 04/20/2019. Assumed care today. Vitals within normal limits, patient alert oriented x3 in no apparent distress, denies any fever, chills, nausea, vomiting, diarrhea, constipation or any urinary symptoms. 04/21/2019. No acute events overnight, patient is accompanied by his partner who is also his POA. She is a primary caregiver. Patient sitting comfortably in his bed in no apparent distress, denies any fever, chills, nausea, vomiting, diarrhea, constipation or any urinary symptoms. 04/22/2019. No acute events overnight. Accompanied by his POA. Operative with physical examination, does not appear to be any distress. P.o. tolerant and having normal bowel and bladder movements. Denies any fever, nausea, chills, diarrhea, constipation or any urinary symptoms. Reason For Visit: HYPOTENSION Physical Exam Vital Signs: Temp Pulse Resp BP Pulse Ox 98.1 F 63 17 154/94 H 96 04/22/19 07:37 04/22/19 07:37 04/22/19 07:37 04/22/19 07:37 04/22/19 07:37 Intake & Output 04/21/19 04/22/19 04/23/19 06:59 06:59 06:59 Intake Total 1603 1030 Output Total 2200 2800 Balance -597 -9400 Weight 64.7 kg 64 kg General appearance: PRESENT: no acute distress, well-developed, well-nourished Head exam: PRESENT: atraumatic, normocephalic Respiratory exam: PRESENT: clear to auscultation yue. ABSENT: rales, rhonchi, wheezes Cardiovascular exam: PRESENT: RRR. ABSENT: diastolic murmur, rubs, systolic murmur Pulses: PRESENT: normal dorsalis pedis pul GI/Abdominal exam: PRESENT: normal bowel sounds, soft. ABSENT: distended, guarding, mass, organolmegaly, rebound, tenderness Neurological exam: PRESENT: alert, awake, oriented to person, oriented to place, oriented to time, oriented to situation, CN II-XII grossly intact, motor sensory deficit - Right-sided hemiparesis, chronic. Unchanged. Results Laboratory Results: 04/21/19 05:17 04/22/19 07:43 04/22/19 07:43 Sodium 127.4 L Potassium 4.3 Chloride 99 Carbon Dioxide 24 Anion Gap 4 L BUN 10 Creatinine 0.49 L Est GFR ( Amer) > 60 Est GFR (Non-Af Amer) > 60 Glucose 168 H Calcium 8.3 L 04/19/19 04/19/19 04/19/19 07:34 07:34 12:13 Creatine Kinase 24 L CK-MB (CK-2) 0.81 2.71 Troponin I < 0.012 0.013 NT-Pro-B Natriuret Pep 04/20/19 05:21 Creatine Kinase CK-MB (CK-2) Troponin I NT-Pro-B Natriuret Pep 2360 H Impressions: Chest X-Ray 04/19/19 08:12 IMPRESSION: NO SIGNIFICANT RADIOGRAPHIC FINDING IN THE CHEST. Head CT 04/19/19 08:12 IMPRESSION: Diffuse cerebral atrophy and small-vessel ischemic changes. Large old right MCA infarct. No acute intracranial event. EVIDENCE OF ACUTE STROKE: NO. Assessment and Plan - Diagnosis (1) Sepsis associated hypotension Is this a current diagnosis for this admission?: Yes Plan: Resolved. Most likely source UTI. 04/22/2019: SBP 846010, max 98.1, pulse 60s, RR 1418, SPO2 96% RA. 04/21/2019: SBP 479978, T-max 97.4, pulse 5568, RR 1618, SPO2 98% RA. WBC 8.0, hemoglobin 11.2, platelets 170, calcium 7.9, proBNP 2360 Day 4 IV ceftriaxone. DC ceftriaxone 04/22/2019. 04/27/2019 started on levofloxacin 500 mg p.o. daily. Day 4/5 antibiotics. Blood and urine culture no growth so far. Follow-up cultures. Continue telemetry, monitor volume status, vitals. (2) Hyponatremia Is this a current diagnosis for this admission?: Yes Plan: Mild improvement. Yesterday patient did mention that he has a habit of excessive water intake. Advised to cut down on his excessive water intake. There is mild improvement of his serum sodium. Sodium today is 127. However mineralocorticoid deficiency has not been ruled. Pending nephrology consult. 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 Unsure how long he has been on steroids. Restart steroids. Consult nephrology. Daily BMP, monitor for seizures. (3) Urinary tract infection Qualifiers: Urinary tract infection type: site unspecified Hematuria presence: without hematuria Qualified Code(s): N39.0 - Urinary tract infection, site not specified Is this a current diagnosis for this admission?: Yes Plan: Likely due to gram-negative rods including E. coli. Day 4 IV ceftriaxone. DC ceftriaxone 04/22/2019. 04/27/2019 started on levofloxacin 500 mg p.o. daily. Day 4/5 antibiotics. Blood and urine culture no growth so far. (4) Diabetes mellitus type 2 in nonobese Is this a current diagnosis for this admission?: No Plan: Hemoglobin A1c 6.4. Likely worsened by chronic steroid use for bullous pemphigoid. Continue Accu-Chek, diabetic diet, sliding scale insulin, pre-meal insulin, long-acting insulin. Outpatient PCP follow-up. (5) History of CVA with residual deficit Is this a current diagnosis for this admission?: No Plan: History of right CVA. History of right carotid occlusion. Persistent left-sided hemiparesis. Continue aspirin, high intensity statins, monitor BP. Continue physical therapy. Patient has good care at home, lives with a partner who is also POA. (6) Hyperlipidemia Is this a current diagnosis for this admission?: No Plan: ASCVD 63.5%. Continue simvastatin 80 mg p.o. daily. Continue diet and lifestyle modification. Patient is allergic to atorvastatin. (7) Atrial fibrillation Qualifiers: Atrial fibrillation type: unspecified Qualified Code(s): I48.91 - Unspecified atrial fibrillation Is this a current diagnosis for this admission?: No Plan: History of chronic A. fib. CHADs Score 6 Rate controlled. Not anticoagulated. Continue beta-blockers, aspirin, statins. (8) Carotid stenosis, right Is this a current diagnosis for this admission?: No Plan: History of right carotid occlusion. Patient has refused endarterectomy in the past. Continue statins, aspirin, optimize blood pressure. (9) HTN (hypertension) Is this a current diagnosis for this admission?: No Plan: Euvolemic. Continue Coreg, lisinopril, adjust meds as needed. Outpatient PCP follow-up. (10) Hx of pemphigoid Is this a current diagnosis for this admission?: No Plan: Continue steroids. Currently not on flare. As per family patient is on a taper dose. Contact school crossing guard supervisor.
--- NOTE | 2019-04-22 13:14 | PDOC CONSULTATION ---
Consultation Consult Date: 04/22/19 Provider Consulted: ROSA WHITE Consult reason:: I was asked to see the patient due to hyponatremia. History of Present Illness Admission Date/PCP: 04/19/19 12:18 History of Present Illness: ZOEY GRIER is a 78 year old male with history of 2 CVAs involving the left side of his body, ambulates with a cane, hyperlipidemia, atrial fibrillation, diabetes mellitus type 2 who was admitted on 04/19/2019 because of weakness and difficulty standing. His blood pressure was also low at 70/50. He was also noted to have low sodium of 125.3. He was given IV fluid boluses with normal saline. He received about 3 L of IV fluids of normal saline during the first 24 hours of presentation. He is making appropriate amount of urine output. For the last 48 hours he makes about 2200 to 2800 mL plus of urine considering he is incontinent. He just recently got started on prednisone by his gastroenterologist for his bullous pemphigoid. We get records from his gastroenterologist and it appears that on his visit on 04/10/2019 he was started on prednisone 20 mg to be taken 2 tablets daily for a week and on and 1 tablet daily for the next week. Patient states that he just started taking it last week. Currently the patient feels 100% better in terms of his weakness. He said he has good appetite and has been eating good. Patient tells me that he has not had any problem with his sodium level before. Her last record of his sodium level here in the hospital was in 2016 and it was normal. He does admit to drinking a lot of water and he reports drinking at least 3 L of plain water sometimes 4 L even at home. He said he was dehydrated and was hospitalized at [facility] so since then he has been drinking a lot of water. He denies drinking beer or any alcohol. On his med list was fluoxetine but he could not remember or tell me if he is taking that at home. He denies any nausea, vomiting or diarrhea. He denies any confusion, nor tremors but he is unsteady on his feet but this may be due to his previous strokes. His urine sodium on April 20 was 68. His serum sodium remains to be 1- 5 for the first 2 days of admission the despite 3 L of IV normal saline. Yesterday sodium was 126.2 and today is 127.4. His blood pressure is now improving in fact a little bit on the high side. Past Medical History Cardiac Medical History: Reports: Hyperlipidemia, Hypertension-primary Endocrine Medical History: Reports: Diabetes Mellitus Type 2 Psychiatric Medical History: Reports: Depression Past Surgical History Past Surgical History: Reports: Orthopedic Surgery - Had fractures years ago. Also had left arm flexor muscle repaired. Social History Information Source: Patient Lives with: Spouse/Significant other Smoking Status: Unknown if Ever Smoked Frequency of Alcohol Use: None Hx Recreational Drug Use: No Drugs: None Hx Prescription Drug Abuse: No - Advance Directive Resuscitation Status: Full Code Family History Family History: CVA - Father, DM - Mother, brothers and sisters Parental Family History Reviewed: Yes Children Family History Reviewed: Yes Sibling(s) Family History Reviewed.: Yes Medication/Allergy Home Medications: Amlodipine Besylate [Norvasc 5 mg Tablet] 5 mg PO DAILY 04/19/19 Aspirin [Aspirin 325 mg Tablet] 325 mg PO DAILY 04/19/19 Carvedilol [Coreg 3.125 mg Tablet] 3.125 mg PO Q12 04/19/19 Fluoxetine HCl [Prozac 20 mg Capsule] 20 mg PO DAILY 04/19/19 Gabapentin [Neurontin 100 mg Capsule] 100 mg PO Q8 04/19/19 Lisinopril [Prinivil 2.5 mg Tablet] 2.5 mg PO DAILY 04/19/19 Prednisone [Deltasone 20 mg Tablet] 20 mg PO DAILY 04/19/19 Simvastatin [Zocor 40 mg Tablet] 40 mg PO DAILY 04/19/19 Tamsulosin HCl [Flomax 0.4 mg Cap.sr] 0.4 mg PO QHS 04/19/19 Allergies/Adverse Reactions: atorvastatin calcium [From Lipitor] Allergy (Verified 04/12/16 07:49) Review of Systems All systems: reviewed and no additional remarkable complaints except as stated Review of Systems: Constitutional: ABSENT: chills, fatigue, fever(s), headache(s), weight gain, weight loss; generalized weakness on admission Eyes: ABSENT: visual disturbances Ears: ABSENT: hearing changes Cardiovascular: ABSENT: chest pain, dyspnea on exertion, edema, orthropnea, palpitations Respiratory: ABSENT: cough, dyspnea, hemoptysis Gastrointestinal: ABSENT: abdominal pain, constipation, diarrhea, hematemesis, hematochezia, nausea, vomiting Genitourinary: ABSENT: dysuria, hematuria Musculoskeletal: ABSENT: joint swelling Integumentary: ABSENT: rash, wounds; patient has bullous lesions which is currently improved Neurological: ABSENT: abnormal gait, abnormal speech, confusion, dizziness, focal weakness, numbness, syncope Psychiatric: ABSENT: anxiety, depression Endocrine: ABSENT: cold intolerance, heat intolerance, polydipsia, polyuria Hematologic/Lymphatic: ABSENT: easy bleeding, easy bruising, lymphadenopathy Physical Exam Vital Signs: Temp Pulse Resp BP Pulse Ox 98.1 F 63 17 154/94 H 96 04/22/19 07:37 04/22/19 07:37 04/22/19 07:37 04/22/19 07:37 04/22/19 07:37 Intake & Output 04/21/19 04/22/19 04/23/19 06:59 06:59 06:59 Intake Total 1603 1030 360 Output Total 2200 2800 200 Balance -597 -1770 160 Weight 64.7 kg 64 kg Exam: General appearance: No acute distress, cooperative, well-developed, well- nourished Head exam: PRESENT: atraumatic, normocephalic Eye exam: PRESENT: Conjunctiva slightly pale, EOMI, PERRLA. ABSENT: conjunctival injection, scleral icterus Mouth exam: PRESENT: moist, neck supple, tongue midline Neck exam: PRESENT: full ROM. ABSENT: carotid bruit, JVD, lymphadenopathy, thyromegaly Respiratory exam: PRESENT: clear to auscultation bilaterally. ABSENT: rales, rhonchi, stridor, wheezes Cardiovascular exam: PRESENT: RRR, +S1, +S2. Grade 2/6 systolic murmur Pulses: PRESENT: normal radial pulses, normal dorsalis pedis pulses GI/Abdominal exam: PRESENT: normal bowel sounds, soft. ABSENT: guarding, mass, tenderness Rectal exam: Deferred Extremities exam: PRESENT: full ROM. ABSENT: calf tenderness, pedal edema Musculoskeletal: PRESENT: full ROM. ABSENT: deformity Neurological exam: PRESENT: alert, Awake, Oriented to person, Oriented to place, Oriented to time, reflexes normal, CN II-XII grossly intact. ABSENT: motor sensory deficit Psychiatric exam: PRESENT: appropriate affect, normal mood. ABSENT: homicidal ideation, suicidal ideation Skin exam: PRESENT: intact, dry, warm. Bullous lesions on bilateral arms and lower extremities which seems to be drying up pretty good ABSENT: rash Results Laboratory Results: 04/21/19 05:17 04/22/19 07:43 04/22/19 07:43 Sodium 127.4 L Potassium 4.3 Chloride 99 Carbon Dioxide 24 Anion Gap 4 L BUN 10 Creatinine 0.49 L Est GFR ( Amer) > 60 Est GFR (Non-Af Amer) > 60 Glucose 168 H Calcium 8.3 L 04/19/19 04/19/19 04/19/19 07:34 07:34 12:13 Creatine Kinase 24 L CK-MB (CK-2) 0.81 2.71 Troponin I < 0.012 0.013 NT-Pro-B Natriuret Pep 04/20/19 05:21 Creatine Kinase CK-MB (CK-2) Troponin I NT-Pro-B Natriuret Pep 2360 H Impressions: Chest X-Ray 04/19/19 08:12 IMPRESSION: NO SIGNIFICANT RADIOGRAPHIC FINDING IN THE CHEST. Head CT 04/19/19 08:12 IMPRESSION: Diffuse cerebral atrophy and small-vessel ischemic changes. Large old right MCA infarct. No acute intracranial event. EVIDENCE OF ACUTE STROKE: NO. Assessment & Plan - Diagnosis (1) Hyponatremia Is this a current diagnosis for this admission?: Yes Plan: Patient is currently euvolemic. He was given IV fluid hydration with normal saline initially but did not improve his sodium level. Patient admittedly has been drinking a lot of water even at home, at least 3 L daily and continues to do so while here in the hospital for the last few days. There is voluntarily polydipsia could pretty much cause hyponatremia by itself. Other contributory factors include fluoxetine. I doubt that this is due to adrenal insufficiency since the patient has not really been on prednisone for a long time. SIADH is always a consideration. I will check urine osmolality, TSH, cortisol and uric acid levels today. We w ill try to give the patient tolvaptan 50 mg x 1 dose today. Minimizing water intake to 2 L a day while in giving tolvaptan is appropriate. Continue to monitor sodium levels. I educated the patient that he should not drink other electrolyte containing drinks more than water if he needs to drink more than 2 L a day. Discussed with him will how just drinking plain water can cause hyponatremia. (2) Weakness Is this a current diagnosis for this admission?: Yes Plan: Partly due to hyponatremia which is now improved. (3) History of CVA with residual deficit Is this a current diagnosis for this admission?: No - Notes Notes: Thank you very much for this consultation. We will follow patient with you. - Time Time Spent: 50 to 70 Minutes
[2019-04-22] MEDS ORDERED: TOLVAPTAN 15 MG TABLET PO ONE (15:00)
[2019-04-22] MEDS: LISINOPRIL 5 MG TABLET PO SCH (15:50)
[2019-04-22] MEDS: LEVOFLOXACIN 500 MG TABLET PO SCH (16:35)
[2019-04-22] MEDS: SIMVASTATIN 40 MG TABLET PO SCH (21:18)
[2019-04-22] MEDS: TAMSULOSIN HCL 0.4 MG CAP.SR.24H PO SCH (21:18)
[2019-04-23] MEDS: GABAPENTIN 100 MG CAPSULE PO SCH ×3 (05:24→21:36)
[2019-04-23] MEDS: LISINOPRIL 5 MG TABLET PO SCH (10:13)
[2019-04-23] MEDS: ASPIRIN 325 MG TABLET PO SCH (10:16)
[2019-04-23] MEDS: FLUOXETINE HCL 20 MG CAPSULE PO SCH (10:16)
[2019-04-23] MEDS: PREDNISONE 20 MG TABLET PO SCH (10:16)
[2019-04-23] MEDS: CARVEDILOL 3.125 MG TABLET PO SCH ×2 (10:17→21:36)
[2019-04-23] MEDS: ENOXAPARIN SODIUM INJ 40 MG/0.4 ML DISP.SYRIN SUBCUT SCH (10:17)
[2019-04-23] MEDS: FAMOTIDINE 20 MG TABLET PO SCH ×2 (10:17→21:36)
[2019-04-23] MEDS: LEVOFLOXACIN 500 MG TABLET PO SCH (10:17)
--- NOTE | 2019-04-23 11:17 | PDOC PROGRESS REPORT ---
Subjective Progress Note for:: 04/23/19 Subjective:: Patient feels fine. He has no complaints. He actually wanted to go home. Patient significant other is at bedside. His urine output yesterday was 2175 mL. He has normal thyroid function and cortisol. His urine osmolality is relatively low and his uric acid is also low. Reason For Visit: HYPOTENSION Physical Exam Vital Signs: Temp Pulse Resp BP Pulse Ox 98.4 F 70 24 H 130/63 H 98 04/23/19 08:08 04/23/19 08:08 04/23/19 08:08 04/23/19 08:08 04/23/19 08:08 Intake & Output 04/22/19 04/23/19 04/24/19 06:59 06:59 06:59 Intake Total 1030 1620 Output Total 2800 2175 Balance -1770 -555 Weight 64 kg 64.5 kg Exam: General appearance: PRESENT: no acute distress, cooperative, well-developed, well-nourished Head exam: PRESENT: atraumatic, normocephalic Eye exam: PRESENT: conjunctiva pink, PERRLA. ABSENT: scleral icterus Neck exam: ABSENT: JVD Respiratory exam: PRESENT: Normal breath sounds. ABSENT: crackles, rales, rhonchi, unlabored, wheezes Cardiovascular exam: PRESENT: Regular rate rhythm -+S1, +S2. Grade 2/6 systolic murmur GI/Abdominal exam: PRESENT: normal bowel sounds, soft. ABSENT: guarding, mass, tenderness Extremities exam: ABSENT: No edema Neurological exam: PRESENT: alert, awake, oriented to person, place and time. Skin exam: PRESENT: dry, warm, multiple bullous skin lesions which are actually drying up. Results Laboratory Results: 04/21/19 05:17 04/22/19 04/22/19 04/22/19 07:43 07:43 15:00 Uric Acid 2.0 L TSH 1.53 Urine Osmolality 264 L 04/20/19 09:06 Clean Catch Midstream Urine Culture - Final NO GROWTH 2 DAYS 04/19/19 04/19/19 04/19/19 07:34 07:34 12:13 Creatine Kinase 24 L CK-MB (CK-2) 0.81 2.71 Troponin I < 0.012 0.013 NT-Pro-B Natriuret Pep 04/20/19 05:21 Creatine Kinase CK-MB (CK-2) Troponin I NT-Pro-B Natriuret Pep 2360 H Impressions: Chest X-Ray 04/19/19 08:12 IMPRESSION: NO SIGNIFICANT RADIOGRAPHIC FINDING IN THE CHEST. Head CT 04/19/19 08:12 IMPRESSION: Diffuse cerebral atrophy and small-vessel ischemic changes. Large old right MCA infarct. No acute intracranial event. EVIDENCE OF ACUTE STROKE: NO. Assessment & Plan - Diagnosis (1) Hyponatremia Is this a current diagnosis for this admission?: Yes Plan: This most likely secondary to a combination of polydipsia with increased intake of water, SIADH with contribution of SSRI. I do not think this is due to adrenal insufficiency. I will give the patient another dose of Tolvaptan 50 mg x 1 today. I suspect his sodium level to be improved by tomorrow and if everything else is okay I think he should be safely be able to be discharged home. Advised patient not to drink water more than 2 L a day but he can drink additional electrolyte containing drinks in addition to the 2 L of water every day. (2) Weakness Is this a current diagnosis for this admission?: Yes (3) History of CVA with residual deficit Is this a current diagnosis for this admission?: No - Time Time with patient: 15-25 minutes
[2019-04-23 11:18] LABS: ANION GAP 8 (5-19); BLOOD UREA NITROGEN 16 mg/dL (7-20); CARBON DIOXIDE 23 mmol/L (22-30); CHLORIDE 101 mmol/L (98-107); GLUCOSE 261 mg/dL (75-110); POTASSIUM 4.4 mmol/L (3.6-5.0); SODIUM 131.5 mmol/L (137-145)
[2019-04-23] MEDS ORDERED: TOLVAPTAN 15 MG TABLET PO ONE (13:00)
[2019-04-23 18:17] LABS: ANION GAP 7 (5-19); BLOOD UREA NITROGEN 19 mg/dL (7-20); CALCIUM 8.8 mg/dL (8.4-10.2); CARBON DIOXIDE 24 mmol/L (22-30); CHLORIDE 100 mmol/L (98-107); GLUCOSE 344 mg/dL (75-110); POTASSIUM 5.1 mmol/L (3.6-5.0); SODIUM 130.6 mmol/L (137-145)
--- NOTE | 2019-04-23 18:40 | PDOC PROGRESS REPORT ---
Subjective Progress Note for:: 04/23/19 Subjective:: ZOEY GRIER is a 78 year old male with history of 2 strokes involving the left side of the body he walks with assistance and a cane, hyperlipidemia, atrial fibrillation not on anticoagulation brought in by family with complaints of difficulty in ambulation unsteady gait. No history of falls at home no headaches reported. After calling the EMS he threw up 4 times small amount of liquidy material. No constipation reported no abdominal pain was reported no shortness of breath no chest pains reported. Patient has this bullous 5 regard lesions and as per the hearing aid repairer the taking is taking prednisone p.o. No history of fever at home. In the emergency room patient has a low-grade fever septic work-up was initiated lactic acid is 2.1 found to have blood pressure of systolic 70/50 and started on IV fluids. medical consult was called for further management. 04/20/2019. Assumed care today. Vitals within normal limits, patient alert oriented x3 in no apparent distress, denies any fever, chills, nausea, vomiting, diarrhea, constipation or any urinary symptoms. 04/21/2019. No acute events overnight, patient is accompanied by his partner who is also his POA. She is a primary caregiver. Patient sitting comfortably in his bed in no apparent distress, denies any fever, chills, nausea, vomiting, diarrhea, constipation or any urinary symptoms. 04/22/2019. No acute events overnight. Accompanied by his POA. Operative with physical examination, does not appear to be any distress. P.o. tolerant and having normal bowel and bladder movements. Denies any fever, nausea, chills, diarrhea, constipation or any urinary symptoms. Reason For Visit: HYPOTENSION Physical Exam Vital Signs: Temp Pulse Resp BP Pulse Ox 98.3 F 68 17 117/64 98 04/23/19 15:22 04/23/19 15:22 04/23/19 15:22 04/23/19 15:22 04/23/19 15:22 Intake & Output 04/22/19 04/23/19 04/24/19 06:59 06:59 06:59 Intake Total 1030 1620 1543 Output Total 2800 4925 525 Balance -4841 -657 1018 Weight 64 kg 64.5 kg Results Laboratory Results: 04/21/19 05:17 04/23/19 17:35 04/23/19 04/23/19 10:30 17:35 Sodium 131.5 L 130.6 L Potassium 4.4 5.1 H Chloride 101 100 Carbon Dioxide 23 24 Anion Gap 8 7 BUN 16 19 Creatinine 0.67 0.84 Est GFR ( Amer) > 60 > 60 Est GFR (Non-Af Amer) > 60 > 60 Glucose 261 H 344 H Calcium 9.0 8.8 04/19/19 04/19/19 04/19/19 07:34 07:34 12:13 Creatine Kinase 24 L CK-MB (CK-2) 0.81 2.71 Troponin I < 0.012 0.013 NT-Pro-B Natriuret Pep 04/20/19 05:21 Creatine Kinase CK-MB (CK-2) Troponin I NT-Pro-B Natriuret Pep 2360 H Impressions: Chest X-Ray 04/19/19 08:12 IMPRESSION: NO SIGNIFICANT RADIOGRAPHIC FINDING IN THE CHEST. Head CT 04/19/19 08:12 IMPRESSION: Diffuse cerebral atrophy and small-vessel ischemic changes. Large old right MCA infarct. No acute intracranial event. EVIDENCE OF ACUTE STROKE: NO. Assessment and Plan - Diagnosis (1) Sepsis associated hypotension Is this a current diagnosis for this admission?: Yes Plan: Resolved. Most likely source UTI. 04/22/2019: SBP 831184, max 98.1, pulse 60s, RR 1418, SPO2 96% RA. 04/21/2019: SBP 342371, T-max 97.4, pulse 5568, RR 1618, SPO2 98% RA. WBC 8.0, hemoglobin 11.2, platelets 170, calcium 7.9, proBNP 2360 Day 4 IV ceftriaxone. DC ceftriaxone 04/22/2019. 04/27/2019 started on levofloxacin 500 mg p.o. daily. Day 4/5 antibiotics. Blood and urine culture no growth so far. Follow-up cultures. Continue telemetry, monitor volume status, vitals. (2) Hyponatremia Is this a current diagnosis for this admission?: Yes Plan: Mild improvement. Yesterday patient did mention that he has a habit of excessive water intake. Advised to cut down on his excessive water intake. There is mild improvement of his serum sodium. Sodium today is 127. However mineralocorticoid deficiency has not been ruled. Pending nephrology consult. 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 Unsure how long he has been on steroids. Restart steroids. Consult nephrology. Daily BMP, monitor for seizures. (3) Urinary tract infection Qualifiers: Urinary tract infection type: site unspecified Hematuria presence: without hematuria Qualified Code(s): N39.0 - Urinary tract infection, site not specified Is this a current diagnosis for this admission?: Yes Plan: Likely due to gram-negative rods including E. coli. Day 4 IV ceftriaxone. DC ceftriaxone 04/22/2019. 04/27/2019 started on levofloxacin 500 mg p.o. daily. Day 4/5 antibiotics. Blood and urine culture no growth so far. (4) Diabetes mellitus type 2 in nonobese Is this a current diagnosis for this admission?: No Plan: Hemoglobin A1c 6.4. Likely worsened by chronic steroid use for bullous pemphigoid. Continue Accu-Chek, diabetic diet, sliding scale insulin, pre-meal insulin, long-acting insulin. Outpatient PCP follow-up. (5) History of CVA with residual deficit Is this a current diagnosis for this admission?: No Plan: History of right CVA. History of right carotid occlusion. Persistent left-sided hemiparesis. Continue aspirin, high intensity statins, monitor BP. Continue physical therapy. Patient has good care at home, lives with a partner who is also POA. (6) Hyperlipidemia Is this a current diagnosis for this admission?: No Plan: ASCVD 63.5%. Continue simvastatin 80 mg p.o. daily. Continue diet and lifestyle modification. Patient is allergic to atorvastatin. (7) Atrial fibrillation Qualifiers: Atrial fibrillation type: unspecified Qualified Code(s): I48.91 - Unspecified atrial fibrillation Is this a current diagnosis for this admission?: No Plan: History of chronic A. fib. CHADs Score 6 Rate controlled. Not anticoagulated. Continue beta-blockers, aspirin, statins. (8) Carotid stenosis, right Is this a current diagnosis for this admission?: No Plan: History of right carotid occlusion. Patient has refused endarterectomy in the past. Continue statins, aspirin, optimize blood pressure. (9) HTN (hypertension) Is this a current diagnosis for this admission?: No Plan: Euvolemic. Continue Coreg, lisinopril, adjust meds as needed. Outpatient PCP follow-up. (10) Hx of pemphigoid Is this a current diagnosis for this admission?: No Plan: Continue steroids. Currently not on flare. As per family patient is on a taper dose. Contact hearing aid repairer.
[2019-04-23] MEDS ORDERED: SODIUM POLYSTYRENE SULFONATE 15 GM/60 ML PO ONE (19:30)
[2019-04-23] MEDS ORDERED: CALCIUM GLUCONATE 1000 MG/10 ML INJ IV ONE (19:30)
[2019-04-23] MEDS: TAMSULOSIN HCL 0.4 MG CAP.SR.24H PO SCH (21:36)
[2019-04-23] MEDS: SIMVASTATIN 40 MG TABLET PO SCH (21:36)
[2019-04-24] MEDS: GABAPENTIN 100 MG CAPSULE PO SCH (05:12)
[2019-04-24 05:32] LABS: ANION GAP 6 (5-19); BLOOD UREA NITROGEN 19 mg/dL (7-20); CALCIUM 8.7 mg/dL (8.4-10.2); CARBON DIOXIDE 24 mmol/L (22-30); CHLORIDE 100 mmol/L (98-107); GLUCOSE 189 mg/dL (75-110); POTASSIUM 4.3 mmol/L (3.6-5.0); SODIUM 130.3 mmol/L (137-145)
[2019-04-24 08:13] VITALS: BP 164/81
[2019-04-24] MEDS ORDERED: TOLVAPTAN 15 MG TABLET PO ONE (09:00)
--- NOTE | 2019-04-27 15:11 | Left Against Medical Advice ---
Against Medical Advice Admission Date/Time: 04/19/19 12:18 Primary Care Provider: Date of Patient Emigration: 04/24/19 - Diagnosis: (1) Sepsis associated hypotension Is this a current diagnosis for this admission?: Yes (2) Hyponatremia Is this a current diagnosis for this admission?: Yes (3) Urinary tract infection Is this a current diagnosis for this admission?: Yes (4) Diabetes mellitus type 2 in nonobese Is this a current diagnosis for this admission?: No (5) History of CVA with residual deficit Is this a current diagnosis for this admission?: No (6) Hyperlipidemia Is this a current diagnosis for this admission?: No (7) Atrial fibrillation Is this a current diagnosis for this admission?: No (8) Carotid stenosis, right Is this a current diagnosis for this admission?: No (9) HTN (hypertension) Is this a current diagnosis for this admission?: No (10) Hx of pemphigoid Is this a current diagnosis for this admission?: No - Summary: Summary: Please see Admission and Progress Notes as well. ZOEY GRIER is a 78 M, who LEFT AGAINST MEDICAL ADVICE. The Patient was admitted on 04/19/19 12:18. (1) Sepsis associated hypotension Resolved. Most likely source UTI. Total 5 days of antibiotics. Received 4 days of day 4 IV ceftriaxone. DC ceftriaxone 04/22/2019. 04/27/2019 started on levofloxacin 500 mg p.o. daily. Day 5/5 antibiotics. Blood and urine culture no growth so far. Continue telemetry, monitor volume status, vitals. (2) Hyponatremia Euvolemic. Mild improvement. Patient is stating that he has been drinking lots of water about to 3 to 4 L which she has continued during hospitalization. Was advised to cut down on his fluid intake and nephrology was consulted. As per nephrology note patient's hyponatremia was attributed to voluntary polydipsia and possibly fluoxetine. Urine osmolarity, TSH, cortisol and uric acid were checked she was or WNL. He was started on tolvaptan per nephrology with mild improvement of his hyponatremia unfortunately patient left AMA. (3) Urinary tract infection Likely due to gram-negative rods including E. coli. Day 4 IV ceftriaxone. DC ceftriaxone 04/22/2019. 04/27/2019 started on levofloxacin 500 mg p.o. daily. Day 5/5 antibiotics. Blood and urine culture no growth so far. (4) Diabetes mellitus type 2 in nonobese Hemoglobin A1c 6.4. Likely worsened by chronic steroid use for bullous pemphigoid. Continue Accu-Chek, diabetic diet, sliding scale insulin, pre-meal insulin, long-acting insulin. Outpatient PCP follow-up. (5) History of CVA with residual deficit History of right CVA. History of right carotid occlusion. Persistent left-sided hemiparesis. Continue aspirin, high intensity statins, monitor BP. Continue physical therapy. Patient has good care at home, lives with a partner who is also POA. (6) Hyperlipidemia ASCVD 63.5%. Continue simvastatin 80 mg p.o. daily. Continue diet and lifestyle modification. Patient is allergic to atorvastatin. (7) Atrial fibrillation History of chronic A. fib. CHADs Score 6 Rate controlled. Not anticoagulated. Continue beta-blockers, aspirin, statins. (8) Carotid stenosis, right History of right carotid occlusion. Patient has refused endarterectomy in the past. Continue statins, aspirin, optimize blood pressure. (9) HTN (hypertension) Euvolemic. Continue Coreg, lisinopril, adjust meds as needed. Outpatient PCP follow-up. (10) Hx of pemphigoid Continue steroids. Currently not on flare. As per family patient is on a taper dose to have a follow-up with dermatology.
== END 2019-04-24 08:20 | disposition left against medical advice (07) | DRG 872 ==
LOC: ER 07:19 → EH 12:18 → 3W 13:26
PROVIDERS: ADMIT Internal Medicine; ATTEND Internal Medicine
DX: A41.9 Sepsis, unspecified organism (principal); E87.1 Hypo-osmolality and hyponatremia; N39.0 Urinary tract infection, site not specified; L12.9 Pemphigoid, unspecified; I95.9 Hypotension, unspecified; E11.9 Type 2 diabetes mellitus without complications; E78.5 Hyperlipidemia, unspecified; I65.21 Occlusion and stenosis of right carotid artery; I10 Essential (primary) hypertension; I48.2 Chronic atrial fibrillation; B96.20 Unspecified Escherichia coli [E. coli] as the cause of diseases classified elsewhere; E86.0 Dehydration; F32.9 Major depressive disorder, single episode, unspecified; I69.30 Unspecified sequelae of cerebral infarction; Z88.8 Allergy status to other drugs, medicaments and biological substances; Z79.899 Other long term (current) drug therapy; Z82.3 Family history of stroke; Z83.3 Family history of diabetes mellitus; Z79.82 Long term (current) use of aspirin; Z79.52 Long term (current) use of systemic steroids
CPT/HCPCS: 36415; 51701; 70450; 71045; 80048; 80053; 81001; 82533; 82550; 82553; 82570; 82962; 83036; 83605; 83735; 83880; 83935; 84300; 84443; 84484; 84550; 85025; 85610; 85730; 87040; 87086; 93005; 93010; 93306; 96361; 96365; 96367; 99291; A9270-GY; C1758; J0610; J0696; J1650; J1956; J3490; J7030; J7512

== ENCOUNTER 2019-09-17 18:09 | Inpatient (IN) | payer MEDICARE, MEDICAID ==
[2019-09-17 18:43] LABS: ABSOLUTE LYMPHOCYTES (AUTO) 0.8 10^3/uL (0.5-4.7); ABSOLUTE MONOCYTES (AUTO) 0.6 10^3/uL (0.1-1.4); ABSOLUTE NEUT (AUTO) 9.5 10^3/uL (1.7-8.2); BASOPHILS % (AUTO) 0.1 % (0-2); HEMATOCRIT 30.5 % (37.9-51.0); HEMOGLOBIN 10.2 g/dL (13.5-17.0); MEAN CORPUSCULAR HEMOGLOBIN 27.2 pg (27.0-33.4); MEAN CORPUSCULAR HGB CONC 33.5 g/dL (32.0-36.0); MEAN CORPUSCULAR VOLUME 81 fl (80-97); MONOCYTES % (AUTO) 5.9 % (3-13); PLATELET COUNT 340 10^3/uL (150-450); RED BLOOD COUNT 3.76 10^6/uL (4.35-5.55); RED CELL DISTRIBUTION WIDTH 15.3 % (11.5-14.0); TOTAL CELLS COUNTED % (AUTO) 100 %; WHITE BLOOD COUNT 10.9 10^3/uL (4.0-10.5)
[2019-09-17 19:03] LABS: INTERNATIONAL RATION (INR) 1.38; PROTHROMBIN TIME 17.1 SEC (11.4-15.4)
--- NOTE | 2019-09-17 19:11 | ER Document Report ---
ED General - General Chief Complaint: Vomiting Stated Complaint: ALTERED MENTAL STATUS Time Seen by Provider: 09/17/19 18:55 TRAVEL OUTSIDE OF THE [place] IN LAST 30 DAYS: No - Related Data Allergies/Adverse Reactions: atorvastatin calcium [From Lipitor] Allergy (Verified 04/12/16 07:49) Home Medications: tamusolin, citalopram, metformin, sodium chloride, carvedilol, aspirin, simvastatin, hydrocodone Past Medical History - Social History Smoking Status: Former Smoker Family History: Reviewed & Not Pertinent Patient has suicidal ideation: No Patient has homicidal ideation: No - Past Medical History Cardiac Medical History: Reports: Hx Hypercholesterolemia, Hx Hypertension Pulmonary Medical History: Denies: Hx Tuberculosis Neurological Medical History: Reports: Hx Cerebrovascular Accident - 10/2012 Endocrine Medical History: Reports: Hx Diabetes Mellitus Type 2 Renal/ Medical History: Denies: Hx Peritoneal Dialysis Musculoskeletal Medical History: Reports Hx Musculoskeletal Trauma - L. FA Psychiatric Medical History: Reports: Hx Depression Past Surgical History: Reports: Hx Orthopedic Surgery - Had fractures years ago. Also had left arm flexor muscle repaired.. Denies: Hx Appendectomy, Hx Bowel Surgery, Hx Cholecystectomy, Hx Tonsillectomy - Immunizations Hx Diphtheria, Pertussis, Tetanus Vaccination: No Hx Pneumococcal Vaccination: 11/06/13 Physical Exam - Vital signs Vitals: Temp 99.1 F 09/17/19 18:10 - Notes Notes: Patient was brought in by paramedics. Girlfriend reports that he is been lethargic for several days not acting right and vomiting blood. Girlfriend is not here at this time to get any additional history. Patient is a very poor historian he is not really sure why is here he denies headache chest pain shortness of breath nausea vomiting abdominal pain or diarrhea Past medical history includes diabetes hypertension CVA with left-sided weakness atrial fibrillation elevated cholesterol. Also has a history of pemphigus was admitted in April for sepsis Social history is unobtainable Review of systems pertinent positives and negatives as in HPI otherwise all other systems were acutely negative however again unclear how reliable they are based on patient's mental status PHYSICIAN EXAM -vital signs are noted triage note and note from triage reviewed temp was 99 rectally GENERAL: Patient appears chronically ill and debilitated in no acute distress____ HEAD: Atraumatic, normocephalic. EYES: Pupils equal round and reactive to light, extraocular movements intact, sclera anicteric, conjunctiva are normal. ENT: nares patent, oropharynx clear without exudates. Slightly dry mucous membranes. He has several superficial blisters on his lower lip NECK: supple without lymphadenopathy no meningeal signs LUNGS: Breath sounds decreased in the bases but otherwise clear HEART: Regular rate and rhythm without murmurs ABDOMEN: Soft, nontender, normoactive bowel sounds. EXTREMITIES: He has contractures of the left upper and lower extremity there is a deep ulceration that probes to the bone on his left elbow with no acute drainage also a deep ulcer on his left heel with some fibrinous exudate NEUROLOGICAL: He is awake and alert exam he is in the hospital of the year and the month he can tell me today that week is slow and slightly slurred. He has a slightly asymmetric smile. He is got contractures of the left upper and lower extremity is not fully cooperative for motor function but he is moving the right side spontaneously with downgoing toes PSYCH: Flat affect SKIN: Warm, he has several old hyperpigmented papular lesions consistent with his history of pemphigus. He has multiple circular red lesions clear fluid draining from some of them. Some of them are excoriated. 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 Symptoms of vomiting here does not appear to be significantly dehydrated negative from below. He is does have significant hyponatremia and a left shift. SPECT some of his wounds are probably secondary infected and will need admission. Have consulted hospitalist - Vital Signs Vital signs: Temp Pulse Resp BP Pulse Ox 99.1 F 33 H 123/85 96 09/17/19 19:20 09/17/19 19:01 09/17/19 19:01 09/17/19 19:01 - Laboratory Result Diagrams: 09/17/19 18:21 09/17/19 18:21 Laboratory results interpreted by me: 09/17/19 09/17/19 09/17/19 18:21 18:21 18:21 WBC 10.9 H RBC 3.76 L Hgb 10.2 L Hct 30.5 L RDW 15.3 H Lymph % (Auto) 7.0 L Absolute Neuts (auto) 9.5 H Seg Neutrophils % 87.0 H PT 17.1 H Sodium 121.4 L Chloride 91 L Creatinine 0.45 L Glucose 186 H Calcium 6.9 L* Total Protein 4.2 L Albumin 1.5 L - Diagnostic Test Radiology reviewed: Reports reviewed Radiology results interpreted by me: 09/17/19 20:59 A flat and lateral decubitus of the abdomen was obtained. There is multiple dilated loops of small bowel. There appears to be a fecal impaction is a single air-fluid level no evidence sbo - EKG Interpretation by Me Additional EKG results interpreted by me: 09/17/19 20:46 The rate of 93 normal axis and QRS and no nonspecific changes Discharge - Discharge Clinical Impression: Hyponatremia, Vomiting Altered mental status Qualifiers: Altered mental status type: disorientation Qualified Code(s): R41.0 - Disorientation, unspecified Constipation Qualifiers: Constipation type: unspecified constipation type Qualified Code(s): K59.00 - Constipation, unspecified Disposition: ADMITTED INPATIENT Admitting Provider: Lori (Hospitalist)
[2019-09-17 19:14] LABS: ALBUMIN 1.5 g/dL (3.5-5.0); ALKALINE PHOSPHATASE 77 U/L (38-126); ANION GAP 5 (5-19); ASPARTATE AMINO TRANSFERASE 19 U/L (17-59); BILIRUBIN,DIRECT 0.3 mg/dL (0.0-0.4); BILIRUBIN,TOTAL 0.5 mg/dL (0.2-1.3); BLOOD UREA NITROGEN 11 mg/dL (7-20); CARBON DIOXIDE 25 mmol/L (22-30); CHLORIDE 91 mmol/L (98-107); GLUCOSE 186 mg/dL (75-110); POTASSIUM 4.1 mmol/L (3.6-5.0); TOTAL PROTEIN 4.2 g/dL (6.3-8.2)
[2019-09-17] MEDS ORDERED: NORMAL SALINE 1000 ML 1,000 ML IV ONE ×2 (19:15→19:16)
[2019-09-17] MEDS ORDERED: DIPH/PERTUSS(ACELL)/TETANUS VAC/PF 0.5 ML SYR (>=10YO) IM ONE (19:17)
[2019-09-17] MEDS ORDERED: VANCOMYCIN HCL INJ 1000 MG VIAL IV ONE (19:21)
[2019-09-17 19:23] LABS: CALCIUM 6.9 mg/dL (8.4-10.2)
--- NOTE | 2019-09-17 19:58 | RADIOLOGY REPORT (SQ) ---
EXAM DESCRIPTION: ELBOW LEFT AP/LATERAL COMPLETED DATE/TIME: 09/17/2019 7:36 pm REASON FOR STUDY: Rule out osteo- COMPARISON: None. EXAM PARAMETERS: NUMBER OF VIEWS: Two view. TECHNIQUE: AP and lateral radiographic images acquired of the left elbow. LIMITATIONS: None. FINDINGS: MINERALIZATION: Osteopenia. BONES: No acute fracture or dislocation. No worrisome bone lesions. JOINTS: Small joint effusion. SOFT TISSUES: Medial soft tissue laceration- swelling. No radiopaque foreign body. OTHER: No other significant finding. IMPRESSION: Medial soft tissue laceration- swelling. No radiopaque foreign body. Small joint effusion.No acute fracture or dislocation. No worrisome bone lesions. TECHNICAL DOCUMENTATION: JOB ID: [id number] [place]-72 2010 [employer]- All Rights Reserved Reading location - IP/workstation name: [email or web address]
--- NOTE | 2019-09-17 20:00 | RADIOLOGY REPORT (SQ) ---
EXAM DESCRIPTION: ANKLE LEFT AP/LATERAL COMPLETED DATE/TIME: 09/17/2019 7:36 pm REASON FOR STUDY: Rule out osteo- COMPARISON: None. EXAM PARAMETERS: NUMBER OF VIEWS: Two view. TECHNIQUE: AP and lateral radiographic images acquired of the left ankle. LIMITATIONS: None. FINDINGS: MINERALIZATION: Osteopenia. BONES: No acute fracture or dislocation. No worrisome bone lesions. JOINTS: Small effusion. SOFT TISSUES: Mild lateral soft tissue swelling. No radiopaque foreign body. OTHER: No other significant finding. IMPRESSION: No acute fracture or dislocation. No worrisome bone lesions. Small effusion. Mild lateral soft tissue swelling. No radiopaque foreign body. TECHNICAL DOCUMENTATION: JOB ID: [id number] [place]-72 2010 [employer]- All Rights Reserved Reading location - IP/workstation name: [email or web address]
--- NOTE | 2019-09-17 20:01 | RADIOLOGY REPORT (SQ) ---
EXAM DESCRIPTION: CHEST SINGLE VIEW COMPLETED DATE/TIME: 09/17/2019 7:36 pm REASON FOR STUDY: Altered mental status COMPARISON: 04/19/2019 TECHNIQUE: Single frontal radiographic view of the chest acquired. NUMBER OF VIEWS: One view. LIMITATIONS: None. FINDINGS: LUNGS AND PLEURA: No pneumothorax. Left basilar consolidation - pleural effusion. MEDIASTINUM AND HILAR STRUCTURES: Stable. HEART AND VASCULAR STRUCTURES: Stable. BONES: No acute findings. HARDWARE: None in the chest. OTHER: Moderate gas distention of the colon. IMPRESSION: Left basilar consolidation - pleural effusion.Moderate gas distention of the colon. TECHNICAL DOCUMENTATION: JOB ID: [id number] [place]-72 2010 [employer]- All Rights Reserved Reading location - IP/workstation name: [email or web address]
--- NOTE | 2019-09-17 20:39 | RADIOLOGY REPORT (SQ) ---
EXAM DESCRIPTION: RadLex: CT HEAD WITHOUT IV CONTRAST CLINICAL HISTORY: 78 years Male; Mental status altered TECHNIQUE: Noncontrast CT head. All CT scans at this facility use dose modulation, iterative reconstruction, and/or weight based dosing when appropriate to reduce radiation dose to as low as reasonably achievable. COMPARISON: CT 04/19/2019 FINDINGS: There is a large area of encephalomalacia in the right cerebral hemisphere, consistent with an old right MCA infarct, as seen on prior exam. Old left thalamic lacunar infarct is again noted. No acute hemorrhage or mass effect. Chronic ischemic low-density changes are noted in the left cerebral white matter. Visualized portions of paranasal sinuses and mastoids are clear. Visualized portions of the calvarium are within normal limits. IMPRESSION: 1. No acute intracranial findings. 2. Old right MCA distribution infarct and other chronic ischemic changes as on 04/19/2019.
[2019-09-17] MEDS ORDERED: METHYLPREDNISOLONE INJ 125 MG/2 ML SDV IV ONE (20:43)
--- NOTE | 2019-09-17 21:28 | RADIOLOGY REPORT (SQ) ---
EXAM DESCRIPTION: No acute RadLex: XR ABDOMEN 2 VIEWS SUPINE ERECT Views: 2 CLINICAL HISTORY: 78 years Male, Abdominal pain COMPARISON: None. FINDINGS: Supine and right lateral decubitus AP abdomen: Exam was technically difficult due to patient condition. There is moderate amount of fecal material in the distal colon. Mild gaseous distention of the proximal colon. Several small bowel segments are also air-filled, with only mild distention. There is an air-fluid level only in the descending colon. No free air. No pneumatosis. IMPRESSION: 1. Increased bowel gas, but no significant small bowel distention. 2. Possible distal fecal impaction.
[2019-09-17] MEDS ORDERED: MAG HYDROX/AL HYDROX/SIMETH SUSP 30 ML UDCUP PO PRN (23:03)
[2019-09-17] MEDS ORDERED: PROMETHAZINE HCL INJ 25 MG/1 ML VIAL IV PRN (23:03)
[2019-09-17] MEDS ORDERED: MAGNESIUM HYDROXIDE SUSP 30 ML UDCUP PO PRN (23:03)
[2019-09-17] MEDS ORDERED: TEMAZEPAM 7.5 MG CAPSULE PO PRN (23:03)
[2019-09-17] MEDS ORDERED: DEXTROSE 40% GEL 15 GM TUBE PO PRN ×2 (23:08)
[2019-09-17] MEDS ORDERED: GLUCAGON,HUMAN RECOMB 1 MG INJ IM PRN (23:08)
[2019-09-17] MEDS ORDERED: DEXTROSE 50%-WATER 25 GM/50 ML DISP.SYRIN IV PRN ×2 (23:08)
[2019-09-17] MEDS ORDERED: HYDRALAZINE HCL INJ/PF 20 MG/1 ML SDV IV PRN (23:08)
[2019-09-17] MEDS ORDERED: METHYLPREDNISOLONE INJ 125 MG/2 ML SDV ONE (23:14)
[2019-09-17] MEDS ORDERED: ALBUMIN HUMAN 12.5 GM/50 ML RTUINJ IV SCH (23:15)
[2019-09-17] MEDS: HEPARIN SOD (PORCINE) 5,000 UNIT/ML 1 ML VIAL SUBCUT SCH (23:19)
[2019-09-17] MEDS ORDERED: FAMOTIDINE 20 MG TABLET PO ONE (23:45)
--- NOTE | 2019-09-18 00:31 | EKG REPORT ---
SEVERITY:- OTHERWISE NORMAL ECG - SINUS RHYTHM VENTRICULAR PREMATURE COMPLEX : Confirmed by: Ingrid Menchaca MD 18-Sep-2019 00:30:36
[2019-09-18] MEDS: ACETAMINOPHEN 325 MG TABLET PO PRN (00:47)
[2019-09-18] MEDS: NORMAL SALINE 1000 ML 1,000 ML IV PRN (00:48)
[2019-09-18] MEDS: ALBUMIN HUMAN 12.5 GM/50 ML RTUINJ IV SCH ×4 (01:34→04:58)
--- NOTE | 2019-09-18 01:38 | PDOC H&P ---
History of Present Illness Admission Date/PCP: 09/17/2019 21:17 No local PCP Patient complains of: Vomiting History of Present Illness: ZOEY GRIER is a 78 year old male who presented to the emergency room via EMS with a 2-day history of vomiting. The patient was sent to the hospital by his girlfriend who did not accompany him. EMS relates her report of vomiting numerous times over the last 2 days and today vomiting blood X 1 causing her to summon the ambulance. She added that he has been increasingly confused over the last 2 days. In the emergency room the patient was found to be oriented to himself but was not well oriented otherwise and was unable to provide reliable or meaningful historical information. In the emergency room he was found to have a stool negative for blood, a hemoglobin of 10.2, a sodium of 121.4, and albumin of 1.5, a white blood count of 10,900, a normal lactate, and a glucose of 186. He was subsequently admitted to the hospital for further evaluation and treatment. Past Medical History Past Medical History: Patient's past medical history, past surgical history, social history and family medical history cannot be obtained reliably from the patient and therefore the best and most accurate source available is used for the information presented here. Cardiac Medical History: Reports: Hyperlipidema, Hypertension Pulmonary Medical History: Denies: Asthma, Chronic Obstructive Pulmonary Disease (COPD), Tuberculosis EENT Medical History: Denies: Cataracts, Ears - Hearing aids Neurological Medical History: Reports: Ischemic CVA, Other - Chronic left hemiplegia with limited mobility using assistance and a cane. Denies: Hemorrhagic CVA, Seizures Endocrine Medical History: Reports: Diabetes Mellitus Type 2 Denies: Diabetes Mellitus Type 1, Hyperthyroidism, Hypothyroidism, Obesity Renal/ Medical History: Denies: Chronic Kidney Disease, Nephrolithiasis Malignancy Medical History: Reports: None GI Medical History: Denies: Cirrhosis, Hepatitis Musculoskeltal Medical History: Denies: Arthritis, Gout Skin Medical History: Reports: Other - Bullous pemphigus Denies: Eczema, Psoriasis Psychiatric Medical History: Reports: Depression Denies: Alcohol Dependency, Substance Abuse, Tobacco Dependency Traumatic Medical History: Reports: None Hematology: Reports: Anemia - Chronic Denies: Bleeding Tendencies Infectious Medical History: Reports: None Past Surgical History Past Surgical History: Patient's past medical history, past surgical history, social history and family medical history cannot be obtained reliably from the patient and therefore the best and most accurate source available is used for the information presented here. Past Surgical History: Reports: Orthopedic Surgery - Had fractures years ago. Also had left arm flexor muscle repaired. Social History Information Source: [facility] Records Lives with: Spouse/Significant other Smoking Status: Former Smoker Electronic Cigarette use?: No Frequency of Alcohol Use: None Hx Recreational Drug Use: No Drugs: None Hx Prescription Drug Abuse: No Past Social History Note: Patient's past medical history, past surgical history, social history and family medical history cannot be obtained reliably from the patient and therefore the best and most accurate source available is used for the information presented here. - Advance Directive Resuscitation Status: Full Code Surrogate healthcare decision maker:: Stacy Rizzo Family History Family History: CVA, DM Family History: Patient's past medical history, past surgical history, social history and family medical history cannot be obtained reliably from the patient and therefore the best and most accurate source available is used for the information presented here. Parental Family History Reviewed: Yes Children Family History Reviewed: No Sibling(s) Family History Reviewed.: Yes Medication/Allergy Home Medications: Aspirin [Aspirin 325 mg Tablet] 325 mg PO DAILY 04/19/19 Carvedilol [Coreg 3.125 mg Tablet] 3.125 mg PO Q12 04/19/19 Simvastatin [Zocor 40 mg Tablet] 40 mg PO DAILY 04/19/19 Tamsulosin HCl [Flomax 0.4 mg Cap.sr] 0.4 mg PO QHS 04/19/19 Metformin HCl 500 mg PO BID 09/17/19 Citalopram Hydrobromide [Citalopram HBr] 20 mg PO DAILY 09/18/19 Mupirocin [Bactroban 2% Ointment 22 gm] 1 applic TOP BID 09/18/19 Allergies/Adverse Reactions: atorvastatin calcium [From Lipitor] Allergy (Verified 04/12/16 07:49) Review of Systems ROS unobtainable: Due to mental status - Confusion and altered mental status Physical Exam Vital Signs: Temp Pulse Resp BP Pulse Ox 99.1 F 22 H 123/85 98 09/17/19 19:20 09/17/19 21:00 09/17/19 19:01 09/17/19 21:00 Intake & Output 09/15/19 09/16/19 09/17/19 23:59 23:59 23:59 Weight 63.1 kg General appearance: PRESENT: no acute distress, cooperative Head exam: PRESENT: atraumatic, normocephalic Eye exam: PRESENT: conjunctiva pink. ABSENT: conjunctival injection, scleral icterus Ear exam: PRESENT: normal external ear exam. ABSENT: bleeding, drainage Mouth exam: PRESENT: dry mucosa, neck supple Neck exam: ABSENT: thyromegaly, tracheal deviation Respiratory exam: PRESENT: prolonged expiratory phas - Mildly prolonged expiratory phase throughout all wade, rhonchi - Scattered coarse rhonchi clearing with cough, symmetrical, unlabored, wheezes - Minimal end expiratory wheezes noted in all wade Cardiovascular exam: PRESENT: RRR. ABSENT: clicks, gallop, rubs Pulses: PRESENT: normal radial pulses, normal dorsalis pedis pul Vascular exam: PRESENT: normal capillary refill. ABSENT: pallor GI/Abdominal exam: PRESENT: normal bowel sounds, soft Rectal exam: PRESENT: deferred Extremities exam: ABSENT: joint swelling, pedal edema Musculoskeletal exam: ABSENT: deformity, dislocation Neurological exam: PRESENT: alert, oriented to person, oriented to place, CN II- XII grossly intact - Left hemiparesis involving the left face, upper and lower extremities, motor sensory deficit - Left hemiparesis. ABSENT: oriented to time, oriented to situation Psychiatric exam: PRESENT: depressed, flat affect Skin exam: PRESENT: dry, rash - Chronic bullous pemphigus rash in various stages, warm. ABSENT: jaundice, urticaria Results Laboratory Results: 09/17/19 18:21 09/17/19 18:21 09/17/19 09/17/19 09/17/19 18:21 18:21 18:21 WBC 10.9 H RBC 3.76 L Hgb 10.2 L Hct 30.5 L MCV 81 MCH 27.2 MCHC 33.5 RDW 15.3 H Plt Count 340 Seg Neutrophils % 87.0 H Sodium 121.4 L Potassium 4.1 Chloride 91 L Carbon Dioxide 25 Anion Gap 5 BUN 11 Creatinine 0.45 L Est GFR ( Amer) > 60 Glucose 186 H Lactic Acid 1.5 Calcium 6.9 L* Total Bilirubin 0.5 AST 19 Alkaline Phosphatase 77 Total Protein 4.2 L Albumin 1.5 L Impressions: Chest X-Ray 09/17/19 19:13 IMPRESSION: Left basilar consolidation - pleural effusion.Moderate gas distention of the colon. Head CT 09/17/19 19:14 IMPRESSION: 1. No acute intracranial findings. 2. Old right MCA distribution infarct and other chronic ischemic changes as on 04/19/2019. Ankle X-Ray 09/17/19 19:19 IMPRESSION: No acute fracture or dislocation. No worrisome bone lesions. Small effusion. Mild lateral soft tissue swelling. No radiopaque foreign body. Elbow X-Ray 09/17/19 19:19 IMPRESSION: Medial soft tissue laceration- swelling. No radiopaque foreign body. Small joint effusion.No acute fracture or dislocation. No worrisome bone lesions. Assessment and Plan - Diagnosis (1) Altered mental status Qualifiers: Altered mental status type: disorientation Qualified Code(s): R41.0 - Disorientation, unspecified Is this a current diagnosis for this admission?: Yes Plan: Patient will be admitted to medical floor and neurochecks will be performed every 4 hours to assess his mental status. He will receive routine symptomatic and supportive cares. His altered mental status is expected to improve with resolution of his hyponatremia and correction of his hypoalbuminemia. (2) Hypoalbuminemia Is this a current diagnosis for this admission?: Yes Plan: Patient's albumin will be replaced with 50 g of albumin given over the evening. Comprehensive metabolic profile will be followed on a daily basis. (3) Hyponatremia Is this a current diagnosis for this admission?: Yes Plan: Patient's hyponatremia will be treated with IV normal saline and water res triction. He will be observed closely for attempting excessive oral intake of water by his nursing staff. His sodium will be followed on a regular basis with daily metabolic profiles. (4) History of CVA with residual deficit Is this a current diagnosis for this admission?: Yes Plan: Patient will be evaluated by physical therapy, occupational therapy and speech therapy with consultation to social services technician for discharge planning. (5) HTN (hypertension) Qualifiers: Hypertension type: essential hypertension Qualified Code(s): I10 - Essential (primary) hypertension Is this a current diagnosis for this admission?: Yes Plan: Patient will be continued on his usual antihypertensive regiment and a cardiac diet. His blood pressure be monitored closely throughout his hospital course. (6) Diabetes mellitus type 2 in nonobese Is this a current diagnosis for this admission?: Yes Plan: Patient will be continued on his usual diabetic therapy regiment and a diabetic diet. Before meals and at bedtime Accu-Cheks will be obtained with hyperglycemia being treated with sliding scale insulin and a hypoglycemic protocol in place. (7) Hyperlipidemia Qualifiers: Hyperlipidemia type: unspecified Qualified Code(s): E78.5 - Hyperlipidemia, unspecified Is this a current diagnosis for this admission?: Yes Plan: Patient be continued on his usual lipid therapy. (8) Hx of pemphigoid Is this a current diagnosis for this admission?: Yes Plan: Patient was started on antibiotic therapy for his pemphigoid in the emergency room. Patient will be placed on doxycycline 100 mg p.o. twice daily after meals. A dermatologic consultation may be required to determine any additional appropriate investigational and/or therapeutic intervention. - Time Time Spent with patient: 15-24 minutes Medications reviewed and adjusted accordingly: Yes Anticipated discharge: SNF - Inpatient Certification Based on my medical assessment, after consideration of the patient's comorbidities, presenting symptoms, or acuity I expect that the services needed warrant INPATIENT care.: Yes I certify that my determination is in accordance with my understanding of Medicare's requirements for reasonable and necessary INPATIENT services [42 CFR 412.3e].: Yes Medical Necessity: Significant Comorbidiites Make Outpatient Treatment Too Risky, Need Close Monitoring Due to Risk of Patient Decompensation, Need For IV Fluids, Need For Continuous Telemetry Monitoring, Need for Neurological Checks, Risk of Complication if Not Cared For in Hospital, Risk of Diagnosis Which Will Require Inpatient Eval/Care/Monitoring
[2019-09-18] MEDS: HEPARIN SOD (PORCINE) 5,000 UNIT/ML 1 ML VIAL SUBCUT SCH ×3 (05:00→22:18)
[2019-09-18 07:14] LABS: ALKALINE PHOSPHATASE 65 U/L (38-126); ANION GAP 9 (5-19); ASPARTATE AMINO TRANSFERASE 13 U/L (17-59); BILIRUBIN,DIRECT 0.4 mg/dL (0.0-0.4); BILIRUBIN,TOTAL 0.7 mg/dL (0.2-1.3); BLOOD UREA NITROGEN 11 mg/dL (7-20); CALCIUM 7.2 mg/dL (8.4-10.2); CARBON DIOXIDE 24 mmol/L (22-30); CHLORIDE 90 mmol/L (98-107); GLUCOSE 204 mg/dL (75-110); POTASSIUM 4.3 mmol/L (3.6-5.0); TOTAL PROTEIN 4.6 g/dL (6.3-8.2)
[2019-09-18 07:51] LABS: HEMOGLOBIN 9.4 g/dL (13.5-17.0); MEAN CORPUSCULAR HGB CONC 33.4 g/dL (32.0-36.0); MEAN CORPUSCULAR VOLUME 81 fl (80-97); PLATELET COUNT 288 10^3/uL (150-450); RED BLOOD COUNT 3.46 10^6/uL (4.35-5.55); RED CELL DISTRIBUTION WIDTH 15.1 % (11.5-14.0); WHITE BLOOD COUNT 9.8 10^3/uL (4.0-10.5)
[2019-09-18] MEDS ORDERED: DOXYCYCLINE HYCLATE 100 MG TABLET PO SCH (09:00)
[2019-09-18] MEDS ORDERED: VANCOMYCIN HCL 0 MG in DEXTROSE 5%-WATER 250 ML IV NR (09:15)
--- NOTE | 2019-09-18 09:17 | PDOC PROGRESS REPORT ---
Subjective Progress Note for:: 09/18/19 Subjective:: 09/18/2019-no complaints this a.m. Reason For Visit: VOMITING, CONFUSION/ALTERED MENTAL STATUS, Physical Exam Vital Signs: Temp Pulse Resp BP Pulse Ox 97.5 F 80 17 126/66 H 94 09/18/19 00:26 09/18/19 02:00 09/18/19 00:26 09/18/19 00:26 09/18/19 00:26 Intake & Output 09/17/19 09/18/19 09/19/19 06:59 06:59 06:59 Intake Total 149 50 Balance 149 50 Weight 56.9 kg General appearance: PRESENT: no acute distress, well-developed, well-nourished Neck exam: ABSENT: carotid bruit, JVD, lymphadenopathy, thyromegaly Respiratory exam: PRESENT: clear to auscultation yue. ABSENT: rales, rhonchi, wheezes Cardiovascular exam: PRESENT: RRR. ABSENT: diastolic murmur, rubs, systolic murmur Pulses: PRESENT: +1 pedal pulses bilateral Vascular exam: PRESENT: normal capillary refill GI/Abdominal exam: PRESENT: normal bowel sounds, soft. ABSENT: distended, guarding, mass, organolmegaly, rebound, tenderness Extremities exam: PRESENT: full ROM. ABSENT: calf tenderness, clubbing, pedal edema Neurological exam: PRESENT: alert, awake, oriented to person, oriented to place, oriented to time, oriented to situation, CN II-XII grossly intact. ABSENT: motor sensory deficit Psychiatric exam: PRESENT: appropriate affect, normal mood. ABSENT: homicidal ideation, suicidal ideation Skin exam: PRESENT: other - Multiple areas of pemphigoid Results Laboratory Results: 09/18/19 05:27 09/18/19 05:27 09/17/19 09/17/19 09/17/19 18:21 18:21 18:21 WBC 10.9 H RBC 3.76 L Hgb 10.2 L Hct 30.5 L MCV 81 MCH 27.2 MCHC 33.5 RDW 15.3 H Plt Count 340 Seg Neutrophils % 87.0 H Sodium 121.4 L Potassium 4.1 Chloride 91 L Carbon Dioxide 25 Anion Gap 5 BUN 11 Creatinine 0.45 L Est GFR ( Amer) > 60 Glucose 186 H Lactic Acid 1.5 Calcium 6.9 L* Magnesium Total Bilirubin 0.5 AST 19 Alkaline Phosphatase 77 Total Protein 4.2 L Albumin 1.5 L TSH 09/18/19 09/18/19 09/18/19 05:27 05:27 05:27 WBC 9.8 RBC 3.46 L Hgb 9.4 L Hct 28.0 L MCV 81 MCH 27.0 MCHC 33.4 RDW 15.1 H Plt Count 288 Seg Neutrophils % Sodium 122.7 L Potassium 4.3 Chloride 90 L Carbon Dioxide 24 Anion Gap 9 BUN 11 Creatinine 0.50 L Est GFR ( Amer) > 60 Glucose 204 H Lactic Acid Calcium 7.2 L Magnesium 1.5 L Total Bilirubin 0.7 AST 13 L Alkaline Phosphatase 65 Total Protein 4.6 L Albumin 2.0 L TSH 1.09 Impressions: Chest X-Ray 09/17/19 19:13 IMPRESSION: Left basilar consolidation - pleural effusion.Moderate gas dist ention of the colon. Head CT 09/17/19 19:14 IMPRESSION: 1. No acute intracranial findings. 2. Old right MCA distribution infarct and other chronic ischemic changes as on 04/19/2019. Ankle X-Ray 09/17/19 19:19 IMPRESSION: No acute fracture or dislocation. No worrisome bone lesions. Small effusion. Mild lateral soft tissue swelling. No radiopaque foreign body. Elbow X-Ray 09/17/19 19:19 IMPRESSION: Medial soft tissue laceration- swelling. No radiopaque foreign body. Small joint effusion.No acute fracture or dislocation. No worrisome bone lesions. Abdomen X-Ray 09/17/19 20:33 IMPRESSION: 1. Increased bowel gas, but no significant small bowel distention. 2. Possible distal fecal impaction. Assessment and Plan - Diagnosis (1) Altered mental status Qualifiers: Altered mental status type: disorientation Qualified Code(s): R41.0 - Disorientation, unspecified Is this a current diagnosis for this admission?: Yes Plan: Patient will be admitted to medical floor and neurochecks will be performed every 4 hours to assess his mental status. He will receive routine symptomatic and supportive cares. His altered mental status is expected to improve with resolution of his hyponatremia and correction of his hypoalbuminemia. 09/18/2019-resolved at this time patient able to answer all questions appropriately. We will continue to follow sodium remains low but is correcting (2) Hypoalbuminemia Is this a current diagnosis for this admission?: Yes Plan: Patient's albumin will be replaced with 50 g of albumin given over the evening. Comprehensive metabolic profile will be followed on a daily basis. 09/18/2019-initial albumin 1.5 patient getting 50 g of albumin overnight albumin level 2.0 at this time. (3) Hyponatremia Is this a current diagnosis for this admission?: Yes Plan: Patient's hyponatremia will be treated with IV normal saline and water r estriction. He will be observed closely for attempting excessive oral intake of water by his nursing staff. His sodium will be followed on a regular basis with daily metabolic profiles. -mildly improved continue to follow (4) History of CVA with residual deficit Is this a current diagnosis for this admission?: Yes Plan: Patient will be evaluated by physical therapy, occupational therapy and speech therapy with consultation to dialysis social worker for discharge planning. 09/18/2019-continue physical and occupational therapy physical speech therapy as needed (5) HTN (hypertension) Qualifiers: Hypertension type: essential hypertension Qualified Code(s): I10 - Essential (primary) hypertension Is this a current diagnosis for this admission?: Yes Plan: Patient will be continued on his usual antihypertensive regiment and a cardiac diet. His blood pressure be monitored closely throughout his hospital course. 09/18/2019-stable continue to follow (6) Diabetes mellitus type 2 in nonobese Is this a current diagnosis for this admission?: Yes Plan: Patient will be continued on his usual diabetic therapy regiment and a diabetic diet. Before meals and at bedtime Accu-Cheks will be obtained with hyperglycemia being treated with sliding scale insulin and a hypoglycemic protocol in place. 09/18/2019-continue AC and at bedtime scale insulin hypoglycemic protocol. Metformin (7) Hyperlipidemia Qualifiers: Hyperlipidemia type: unspecified Qualified Code(s): E78.5 - Hyperlipidemia, unspecified Is this a current diagnosis for this admission?: Yes Plan: Patient be continued on his usual lipid therapy. 09/18/2019-continue lipid therapy (8) Hx of pemphigoid Is this a current diagnosis for this admission?: Yes Plan: Patient was started on antibiotic therapy for his pemphigoid in the emergency room. Patient will be placed on doxycycline 100 mg p.o. twice daily after meals. A dermatologic consultation may be required to determine any additional appropriate investigational and/or therapeutic intervention. 09/18/2019-chronic for patient. Patient was placed on doxycycline overnight. Patient's blood culture this time showing gram-positive cocci so I have changed him from Doxy to vancomycin per pharmacy dosing. We will continue to follow await cultures for sensitivity. Will place dressings on open wounds to catch drainage. - Time Time Spent with patient: 15-24 minutes - Inpatient Certification Based on my medical assessment, after consideration of the patient's comorbidities, presenting symptoms, or acuity I expect that the services needed warrant INPATIENT care.: Yes I certify that my determination is in accordance with my understanding of Medicare's requirements for reasonable and necessary INPATIENT services [42 CFR 412.3e].: Yes Medical Necessity: Need for IV Antibiotics
[2019-09-18] MEDS: INSULIN REG, HUMAN 100 UNIT/ML 3 ML VIAL (PYX) SUBCUT SCH ×4 (09:41→22:07)
[2019-09-18] MEDS: ASPIRIN 325 MG TABLET PO SCH (09:42)
[2019-09-18] MEDS: SIMVASTATIN 40 MG TABLET PO SCH (09:43)
[2019-09-18] MEDS: FAMOTIDINE 20 MG TABLET PO SCH ×2 (09:43→22:18)
[2019-09-18] MEDS: METFORMIN HCL 500 MG TABLET PO SCH ×2 (09:43→19:02)
[2019-09-18] MEDS: SODIUM BICARBONATE 650 MG TABLET PO SCH ×4 (09:44→22:17)
[2019-09-18] MEDS: CARVEDILOL 3.125 MG TABLET PO SCH ×2 (09:47→22:19)
[2019-09-18] MEDS: MAGNESIUM SULFATE/D5W 1 GM/100 ML RTUPB IV SCH ×2 (13:00→16:00)
[2019-09-18] MEDS: DOCUSATE SODIUM 100 MG/10 ML UDC PO SCH ×2 (14:19→19:02)
[2019-09-18] MEDS: VANCOMYCIN HCL 500 MG in DEXTROSE 5%-WATER 100 ML IV SCH ×2 (14:19→22:25)
[2019-09-18 15:26] LABS: AMORPHOUS SEDIMENT,URINE TRACE /HPF; APPEARANCE,URINE TURBID; BILIRUBIN,URINE SMALL (NEGATIVE); COLOR,URINE AMBER; GLUCOSE, URINE 150 mg/dL (NEGATIVE); KETONES,URINE TRACE mg/dL (NEGATIVE); LEUKOCYTE ESTERASE,URINE NEGATIVE (NEGATIVE); NITRITE,URINE POSITIVE (NEGATIVE); PROTEIN,URINE 100 mg/dL (NEGATIVE); URINE SPECIFIC GRAVITY 1.028
[2019-09-18] MEDS ORDERED: INFLUENZA QUAD (6MOS+) 2019-20 VAC 0.5 ML SYR IM ONE (16:27)
[2019-09-18] MEDS ORDERED: MAGNESIUM SULFATE/D5W 1 GM/100 ML RTUPB IV ONE (19:01)
[2019-09-18] MEDS: TAMSULOSIN HCL 0.4 MG CAP.SR.24H PO SCH (22:17)
[2019-09-19] MEDS: NORMAL SALINE 1000 ML 1,000 ML IV PRN ×3 (03:06→22:32)
[2019-09-19] MEDS: HEPARIN SOD (PORCINE) 5,000 UNIT/ML 1 ML VIAL SUBCUT SCH ×3 (05:14→22:32)
[2019-09-19 06:06] LABS: HEMATOCRIT 25.4 % (37.9-51.0); HEMOGLOBIN 8.7 g/dL (13.5-17.0); MEAN CORPUSCULAR HEMOGLOBIN 27.6 pg (27.0-33.4); MEAN CORPUSCULAR HGB CONC 34.1 g/dL (32.0-36.0); MEAN CORPUSCULAR VOLUME 81 fl (80-97); PLATELET COUNT 269 10^3/uL (150-450); RED BLOOD COUNT 3.14 10^6/uL (4.35-5.55); RED CELL DISTRIBUTION WIDTH 15.2 % (11.5-14.0); WHITE BLOOD COUNT 12.2 10^3/uL (4.0-10.5)
[2019-09-19 06:31] LABS: ALBUMIN 1.6 g/dL (3.5-5.0); ALKALINE PHOSPHATASE 64 U/L (38-126); ANION GAP 5 (5-19); ASPARTATE AMINO TRANSFERASE 18 U/L (17-59); BILIRUBIN,DIRECT 0.2 mg/dL (0.0-0.4); BILIRUBIN,TOTAL 0.4 mg/dL (0.2-1.3); BLOOD UREA NITROGEN 9 mg/dL (7-20); CARBON DIOXIDE 26 mmol/L (22-30); CHLORIDE 96 mmol/L (98-107); GLUCOSE 121 mg/dL (75-110); POTASSIUM 4.4 mmol/L (3.6-5.0); TOTAL PROTEIN 3.9 g/dL (6.3-8.2)
[2019-09-19] MEDS ORDERED: PROMETHAZINE HCL INJ 25 MG/1 ML VIAL IV PRN (07:30)
[2019-09-19] MEDS: INSULIN REG, HUMAN 100 UNIT/ML 3 ML VIAL (PYX) SUBCUT SCH ×4 (08:00→22:26)
[2019-09-19] MEDS: ASPIRIN 325 MG TABLET PO SCH (09:24)
[2019-09-19] MEDS: SODIUM BICARBONATE 650 MG TABLET PO SCH ×4 (09:24→22:33)
[2019-09-19] MEDS: CARVEDILOL 3.125 MG TABLET PO SCH ×2 (09:24→22:33)
[2019-09-19] MEDS: FAMOTIDINE 20 MG TABLET PO SCH ×2 (09:25→22:33)
[2019-09-19] MEDS: SIMVASTATIN 40 MG TABLET PO SCH (09:25)
[2019-09-19] MEDS: METFORMIN HCL 500 MG TABLET PO SCH ×2 (09:25→18:37)
[2019-09-19] MEDS: DOCUSATE SODIUM 100 MG CAPSULE PO SCH ×2 (09:25→18:37)
[2019-09-19] MEDS: ACETAMINOPHEN 325 MG TABLET PO PRN (09:26)
--- NOTE | 2019-09-19 09:45 | PDOC PROGRESS REPORT ---
Subjective Progress Note for:: 09/19/19 Subjective:: 09/18/2019-no complaints this a.m. 09/19/2019-no complaints Reason For Visit: VOMITING, CONFUSION/ALTERED MENTAL STATUS, Physical Exam Vital Signs: Temp Pulse Resp BP Pulse Ox 97.5 F 72 17 123/67 97 09/19/19 00:00 09/19/19 02:00 09/19/19 00:00 09/19/19 00:00 09/19/19 00:00 Intake & Output 09/18/19 09/19/19 09/20/19 06:59 06:59 06:59 Intake Total 149 1690 Output Total 500 Balance 149 1190 Weight 56.9 kg 52.6 kg General appearance: PRESENT: no acute distress, well-developed, well-nourished Neck exam: ABSENT: carotid bruit, JVD, lymphadenopathy, thyromegaly Respiratory exam: PRESENT: clear to auscultation yue. ABSENT: rales, rhonchi, wheezes Cardiovascular exam: PRESENT: RRR. ABSENT: diastolic murmur, rubs, systolic murmur Pulses: PRESENT: normal dorsalis pedis pul GI/Abdominal exam: PRESENT: normal bowel sounds, soft. ABSENT: distended, guarding, mass, organolmegaly, rebound, tenderness Extremities exam: PRESENT: full ROM. ABSENT: calf tenderness, clubbing, pedal edema Neurological exam: PRESENT: alert, awake, oriented to person, oriented to place, oriented to time, oriented to situation, CN II-XII grossly intact. ABSENT: motor sensory deficit Psychiatric exam: PRESENT: appropriate affect, normal mood. ABSENT: homicidal ideation, suicidal ideation Skin exam: PRESENT: other - Multiple lesions from pemphigoid Results Laboratory Results: 09/19/19 04:14 09/19/19 04:14 09/18/19 09/19/19 09/19/19 13:00 04:14 04:14 WBC 12.2 H RBC 3.14 L Hgb 8.7 L Hct 25.4 L MCV 81 MCH 27.6 MCHC 34.1 RDW 15.2 H Plt Count 269 Sodium 126.9 L Potassium 4.4 Chloride 96 L Carbon Dioxide 26 Anion Gap 5 BUN 9 Creatinine 0.40 L Est GFR ( Amer) > 60 Glucose 121 H Calcium 7.0 L* Magnesium 2.0 Total Bilirubin 0.4 AST 18 Alkaline Phosphatase 64 Total Protein 3.9 L Albumin 1.6 L Urine Color MARTHA Urine Appearance TURBID Urine pH 6.0 Ur Specific [place] 1.028 Urine Protein 100 H Urine Glucose (UA) 150 H Urine Ketones TRACE H Urine Blood LARGE H Urine Nitrite POSITIVE H Ur Leukocyte Esterase NEGATIVE Urine WBC (Auto) 43 Urine RBC (Auto) >182 09/17/19 18:21 Blood Blood Culture (PCR) - Final Staphylococcus Aureus 09/18/19 00:36 Blood Blood Culture (PCR) - Final Staphylococcus Aureus Impressions: Chest X-Ray 09/17/19 19:13 IMPRESSION: Left basilar consolidation - pleural effusion.Moderate gas distention of the colon. Head CT 09/17/19 19:14 IMPRESSION: 1. No acute intracranial findings. 2. Old right MCA distribution infarct and other chronic ischemic changes as on 04/19/2019. Ankle X-Ray 09/17/19 19:19 IMPRESSION: No acute fracture or dislocation. No worrisome bone lesions. Small effusion. Mild lateral soft tissue swelling. No radiopaque foreign body. Elbow X-Ray 09/17/19 19:19 IMPRESSION: Medial soft tissue laceration- swelling. No radiopaque foreign body. Small joint effusion.No acute fracture or dislocation. No worrisome bone lesions. Abdomen X-Ray 09/17/19 20:33 IMPRESSION: 1. Increased bowel gas, but no significant small bowel distention. 2. Possible distal fecal impaction. Assessment and Plan - Diagnosis (1) Altered mental status Qualifiers: Altered mental status type: disorientation Qualified Code(s): R41.0 - Disorientation, unspecified Is this a current diagnosis for this admission?: Yes Plan: Patient will be admitted to medical floor and neurochecks will be performed every 4 hours to assess his mental status. He will receive routine symptomatic and supportive cares. His altered mental status is expected to improve with resolution of his hyponatremia and correction of his hypoalbuminemia. 09/19/2019-stable (2) Hypoalbuminemia Is this a current diagnosis for this admission?: Yes Plan: Patient's albumin will be replaced with 50 g of albumin given over the evening. Comprehensive metabolic profile will be followed on a daily basis. -patient was given albumin overnight. (3) Hyponatremia Is this a current diagnosis for this admission?: Yes Plan: Patient's hyponatremia will be treated with IV normal saline and water rest riction. He will be observed closely for attempting excessive oral intake of water by his nursing staff. His sodium will be followed on a regular basis with daily metabolic profiles. 09/19/2019-improved. Sodium is now 126 we will continue to follow (4) History of CVA with residual deficit Is this a current diagnosis for this admission?: Yes Plan: Patient will be evaluated by physical therapy, occupational therapy and speech therapy with consultation to criminal justice social worker for discharge planning. 09/19/2019-continue physical and occupational therapy. (5) HTN (hypertension) Qualifiers: Hypertension type: essential hypertension Qualified Code(s): I10 - E ssential (primary) hypertension Is this a current diagnosis for this admission?: Yes Plan: Patient will be continued on his usual antihypertensive regiment and a cardiac diet. His blood pressure be monitored closely throughout his hospital course. 09/19/2019-continue current antihypertensive regimen (6) Diabetes mellitus type 2 in nonobese Is this a current diagnosis for this admission?: Yes Plan: Patient will be continued on his usual diabetic therapy regiment and a diabetic diet. Before meals and at bedtime Accu-Cheks will be obtained with hyperglycemia being treated with sliding scale insulin and a hypoglycemic protocol in place. 09/19/2019-stable at this time continue current therapy along with Accu-Cheks before meals and at bedtime (7) Hyperlipidemia Qualifiers: Hyperlipidemia type: unspecified Qualified Code(s): E78.5 - Hyperlipidemia, unspecified Is this a current diagnosis for this admission?: Yes Plan: Patient be continued on his usual lipid therapy. 09/19/2019-continue lipid therapy (8) Hx of pemphigoid Is this a current diagnosis for this admission?: Yes Plan: Patient was started on antibiotic therapy for his pemphigoid in the emergency room. Patient will be placed on doxycycline 100 mg p.o. twice daily after meals. A dermatologic consultation may be required to determine any additional appropriate investigational and/or therapeutic intervention. -patient been placed on IV vancomycin he does have a gram-positive cocci in his blood. Also given him Rocephin for possible UTI. Continue to follow - Time Time Spent with patient: 15-24 minutes - Inpatient Certification Based on my medical assessment, after consideration of the patient's comorbidities, presenting symptoms, or acuity I expect that the services needed warrant INPATIENT care.: Yes I certify that my determination is in accordance with my understanding of Medicare's requirements for reasonable and necessary INPATIENT services [42 CFR 412.3e].: Yes Medical Necessity: Need for IV Antibiotics
[2019-09-19] MEDS: CEFTRIAXONE 1 GM/D5W RTU 1 GM/50 ML RTUPB IV SCH (10:17)
[2019-09-19] MEDS: ALBUMIN HUMAN 12.5 GM/50 ML RTUINJ IV SCH ×4 (10:28→15:19)
[2019-09-19] MEDS: VANCOMYCIN HCL 500 MG in DEXTROSE 5%-WATER 100 ML IV SCH ×2 (12:11→22:32)
[2019-09-19 19:22] LABS: C DIFFICILE GDH NEGATIVE (NEGATIVE)
[2019-09-19 22:02] LABS: VANCOMYCIN,TROUGH 9.6 ug/mL (5.0-20.0)
[2019-09-19] MEDS: TAMSULOSIN HCL 0.4 MG CAP.SR.24H PO SCH (22:33)
[2019-09-20] MEDS: HEPARIN SOD (PORCINE) 5,000 UNIT/ML 1 ML VIAL SUBCUT SCH ×3 (05:41→21:49)
[2019-09-20] MEDS: NORMAL SALINE 1000 ML 1,000 ML IV PRN ×3 (06:24→21:48)
[2019-09-20 07:38] LABS: HEMATOCRIT 26.8 % (37.9-51.0); HEMOGLOBIN 8.7 g/dL (13.5-17.0); MEAN CORPUSCULAR HEMOGLOBIN 26.7 pg (27.0-33.4); MEAN CORPUSCULAR HGB CONC 32.7 g/dL (32.0-36.0); MEAN CORPUSCULAR VOLUME 82 fl (80-97); PLATELET COUNT 273 10^3/uL (150-450); RED BLOOD COUNT 3.27 10^6/uL (4.35-5.55); RED CELL DISTRIBUTION WIDTH 15.3 % (11.5-14.0); WHITE BLOOD COUNT 8.1 10^3/uL (4.0-10.5)
[2019-09-20 07:47] LABS: ALBUMIN 1.9 g/dL (3.5-5.0); ALKALINE PHOSPHATASE 77 U/L (38-126); ASPARTATE AMINO TRANSFERASE 31 U/L (17-59); BILIRUBIN,DIRECT 0.2 mg/dL (0.0-0.4); BILIRUBIN,TOTAL 0.4 mg/dL (0.2-1.3); BLOOD UREA NITROGEN 6 mg/dL (7-20); CALCIUM 7.3 mg/dL (8.4-10.2); CARBON DIOXIDE 27 mmol/L (22-30); CHLORIDE 103 mmol/L (98-107); GLUCOSE 72 mg/dL (75-110); POTASSIUM 3.8 mmol/L (3.6-5.0); TOTAL PROTEIN 4.5 g/dL (6.3-8.2)
[2019-09-20] MEDS: INSULIN REG, HUMAN 100 UNIT/ML 3 ML VIAL (PYX) SUBCUT SCH ×4 (08:00→21:48)
[2019-09-20 08:15] LABS: ANION GAP 4 (5-19)
[2019-09-20] MEDS: SIMVASTATIN 40 MG TABLET PO SCH ×2 (09:17→14:35)
[2019-09-20] MEDS: ASPIRIN 325 MG TABLET PO SCH (09:17)
[2019-09-20] MEDS: CEFTRIAXONE 1 GM/D5W RTU 1 GM/50 ML RTUPB IV SCH (09:17)
[2019-09-20] MEDS: METFORMIN HCL 500 MG TABLET PO SCH ×2 (09:17→17:18)
[2019-09-20] MEDS: DOCUSATE SODIUM 100 MG CAPSULE PO SCH ×3 (09:17→17:23)
[2019-09-20] MEDS: SODIUM BICARBONATE 650 MG TABLET PO SCH ×5 (09:18→21:53)
[2019-09-20] MEDS: FAMOTIDINE 20 MG TABLET PO SCH ×3 (09:18→21:53)
[2019-09-20] MEDS: CARVEDILOL 3.125 MG TABLET PO SCH ×3 (09:18→21:53)
--- NOTE | 2019-09-20 09:25 | PDOC PROGRESS REPORT ---
Subjective Progress Note for:: 09/20/19 Subjective:: 09/18/2019-no complaints this a.m. 09/19/2019-no complaints 09/20/2019-no complaints Reason For Visit: VOMITING, CONFUSION/ALTERED MENTAL STATUS, Physical Exam Vital Signs: Temp Pulse Resp BP Pulse Ox 97.5 F 76 16 128/56 H 97 09/19/19 23:47 09/20/19 07:00 09/19/19 23:47 09/19/19 23:47 09/19/19 23:47 Intake & Output 09/19/19 09/20/19 09/21/19 06:59 06:59 06:59 Intake Total 1690 3768 50 Output Total 500 1000 Balance 1190 2768 50 Weight 52.6 kg 53.2 kg General appearance: PRESENT: no acute distress, well-developed, well-nourished Neck exam: ABSENT: carotid bruit, JVD, lymphadenopathy, thyromegaly Respiratory exam: PRESENT: clear to auscultation yue, decreased breath sounds, symmetrical, unlabored Cardiovascular exam: PRESENT: RRR. ABSENT: diastolic murmur, rubs, systolic murmur Pulses: PRESENT: +1 pedal pulses bilateral Vascular exam: PRESENT: normal capillary refill GI/Abdominal exam: PRESENT: normal bowel sounds, soft. ABSENT: distended, guarding, mass, organolmegaly, rebound, tenderness Extremities exam: PRESENT: full ROM. ABSENT: calf tenderness, clubbing, pedal edema Neurological exam: PRESENT: alert, awake, oriented to person, oriented to place, oriented to time Psychiatric exam: PRESENT: appropriate affect, normal mood. ABSENT: homicidal ideation, suicidal ideation Skin exam: PRESENT: other - Pemphigoid Results Laboratory Results: 09/20/19 06:38 09/20/19 06:38 09/20/19 09/20/19 06:38 06:38 WBC 8.1 RBC 3.27 L Hgb 8.7 L Hct 26.8 L MCV 82 MCH 26.7 L MCHC 32.7 RDW 15.3 H Plt Count 273 Sodium 133.8 L Potassium 3.8 Chloride 103 Carbon Dioxide 27 Anion Gap 4 L BUN 6 L Creatinine 0.40 L Est GFR ( Amer) > 60 Glucose 72 L Calcium 7.3 L Magnesium 1.9 Total Bilirubin 0.4 AST 31 Alkaline Phosphatase 77 Total Protein 4.5 L Albumin 1.9 L 09/17/19 18:21 Blood Blood Culture (PCR) - Final Staphylococcus Aureus 09/18/19 00:36 Blood Blood Culture (PCR) - Final Staphylococcus Aureus Impressions: Chest X-Ray 09/17/19 19:13 IMPRESSION: Left basilar consolidation - pleural effusion.Moderate gas distention of the colon. Head CT 09/17/19 19:14 IMPRESSION: 1. No acute intracranial findings. 2. Old right MCA distribution infarct and other chronic ischemic changes as on 04/19/2019. Ankle X-Ray 09/17/19 19:19 IMPRESSION: No acute fracture or dislocation. No worrisome bone lesions. Small effusion. Mild lateral soft tissue swelling. No radiopaque foreign body. Elbow X-Ray 09/17/19 19:19 IMPRESSION: Medial soft tissue laceration- swelling. No radiopaque foreign body. Small joint effusion.No acute fracture or dislocation. No worrisome bone lesions. Abdomen X-Ray 09/17/19 20:33 IMPRESSION: 1. Increased bowel gas, but no significant small bowel distention. 2. Possible distal fecal impaction. Assessment and Plan - Diagnosis (1) Altered mental status Qualifiers: Altered mental status type: disorientation Qualified Code(s): R41.0 - Disorientation, unspecified Is this a current diagnosis for this admission?: Yes Plan: Patient will be admitted to medical floor and neurochecks will be performed every 4 hours to assess his mental status. He will receive routine symptomatic and supportive cares. His altered mental status is expected to improve with resolution of his hyponatremia and correction of his hypoalbuminemia. 09/19/2019-stable -stable continue to follow (2) Hypoalbuminemia Is this a current diagnosis for this admission?: Yes Plan: Patient's albumin will be replaced with 50 g of albumin given over the evening. Comprehensive metabolic profile will be followed on a daily basis. -patient was given albumin overnight. 09/20/2019-Albumin stays low at 1.9. This most likely from malnutrition. Continue to encourage good dietary intake (3) Hyponatremia Is this a current diagnosis for this admission?: Yes Plan: Patient's hyponatremia will be treated with IV normal saline and water restriction. He will be observed closely for attempting excessive oral intake of water by his nursing staff. His sodium will be followed on a regular basis with daily metabolic profiles. 09/19/2019-improved. Sodium is now 126 we will continue to follow -stable continue to follow (4) History of CVA with residual deficit Is this a current diagnosis for this admission?: Yes Plan: Patient will be evaluated by physical therapy, occupational therapy and speech therapy with consultation to licensed master social worker for discharge planning. 09/19/2019-continue physical and occupational therapy. 09/20/2019-PT and OT (5) HTN (hypertension) Qualifiers: Hypertension type: essential hypertension Qualified Code(s): I10 - Essential (primary) hypertension Is this a current diagnosis for this admission?: Yes Plan: Patient will be continued on his usual antihypertensive regiment and a cardiac diet. His blood pressure be monitored closely throughout his hospital course. 09/19/2019-continue current antihypertensive regimen 09/20/2019-stable (6) Diabetes mellitus type 2 in nonobese Is this a current diagnosis for this admission?: Yes Plan: Patient will be continued on his usual diabetic therapy regiment and a diabetic diet. Before meals and at bedtime Accu-Cheks will be obtained with hyperglycemia being treated with sliding scale insulin and a hypoglycemic protocol in place. 09/19/2019-stable at this time continue current therapy along with Accu-Cheks before meals and at bedtime 09/20/2019-stable continue current therapy (7) Hyperlipidemia Qualifiers: Hyperlipidemia type: unspecified Qualified Code(s): E78.5 - Hyperlipidemia, unspecified Is this a current diagnosis for this admission?: Yes Plan: Patient be continued on his usual lipid therapy. 09/19/2019-continue lipid therapy 09/20/2019-stable (8) Hx of pemphigoid Is this a current diagnosis for this admission?: Yes Plan: Patient was started on antibiotic therapy for his pemphigoid in the emergency room. Patient will be placed on doxycycline 100 mg p.o. twice daily after meals. A dermatologic consultation may be required to determine any additional appropriate investigational and/or therapeutic intervention. -patient been placed on IV vancomycin he does have a gram-positive cocci in his blood. Also given him Rocephin for possible UTI. Continue to follow 09/20/2019-continue current antibiotic regimen. Wound care per nursing - Time Time Spent with patient: 15-24 minutes - Inpatient Certification Based on my medical assessment, after consideration of the patient's comorbidities, presenting symptoms, or acuity I expect that the services needed warrant INPATIENT care.: Yes I certify that my determination is in accordance with my understanding of Medicare's requirements for reasonable and necessary INPATIENT services [42 CFR 412.3e].: Yes Medical Necessity: Significant Comorbidiites Make Outpatient Treatment Too Risky, Need Close Monitoring Due to Risk of Patient Decompensation, Need for IV Antibiotics
[2019-09-20] MEDS: VANCOMYCIN HCL 750 MG in DEXTROSE 5%-WATER 250 ML IV SCH ×2 (13:21→21:48)
--- NOTE | 2019-09-20 14:46 | ST Inp Modified Barium Swallow ---
Medical Diagnosis - Medical Diagnoses Medical Diagnosis Description & ICD-10 Code(s): altered mental status Inpatient MBS - General Date: 09/20/19 Date of Onset: 09/17/19 - History History Obtained From: Other - EMR -: Medical - patient admitted 09/17 with vomiting x2 days. Patient has prior history of CVA with left side hemiparesis. Significant other reports that the patient "wasn't really eating" for a few days prior to admission. Nursing reports some signs of pocketing. This date, ST completed treatment for dysphagia and recommended MBSS following treatment as patient demonstrated consistent cough. Medications: Medications Reviewed Allergies: Refer to medical record - Subjective Current Nutritional Means: PO Current PO Diet: Mechanical- ground Current Symptoms: Coughing Pain: 0/5 - Objective Assessment: Upright, Left Lateral - Food Trials Food Trials Used: Thin liquids, Pureed, Soft solids The Patient: Required Assist, fed by ST - Assessment Labial Function: Impaired Lingual Function: Impaired Mandibular Function: Impaired - Pharyngeal Stage Initiation of Pharyngeal Stage: Delayed Decreased Laryngeal Elevation: Yes Reduced Velo-Pharyngeal Closure: no - Impression/Summary Laryngeal Penetration: No Tracheal Aspiration: no Effective Clearing: yes Patient Presents With: Pharyngeal stage dysph., Mild-Moderate Risk of Aspiration: Severe Risk of Nutritional Compromise: Severe Risk Due To: residuals, delayed swallow - Recommendations NPO: no Solid Diet Recommendations: Mechanical Soft, Ground Meat Liquid Diet Recommendations: Thin Regular Diet: No Strict Aspitarion Precautions: Yes Dysphagia Therapy with RELIABILITY TECHNICIANS: No Recommended Techniques: Fully Upright During Meal, Dry Swallow After Bite, Small Bites and Sips, Alternate Bites/Sips Supervision: Constant, requires assistance Other Recommendations: Patient presents with significantly delayed swallow with swallow triggering from pyriforms. Patient noted to cough after swallow despite NO observed aspiration. With cough, patient viewed in fluoro and no aspirated material in airway or laryngeal vestibule. Patient had increased difficulty with solids and had noted piecemeal deglutition even with small bite. Swallow safety may be increased by puree diet, however may increase risk for nutritional compromise. Patient was not observed to aspirate during study, but is at high risk of aspiration due to delayed swallow, residuals after the swallow, and piecemeal deglutition. Post-swallow residuals did clear with second swallow. - Time Total Time: 10 Total Timed Minutes: 0
--- NOTE | 2019-09-20 15:09 | RADIOLOGY REPORT (SQ) ---
EXAM DESCRIPTION: ANDREY SWALLOW COMPLETED DATE/TIME: 09/20/2019 2:40 pm REASON FOR STUDY: history aspiration, stroke COMPARISON: None. TECHNIQUE: Videofluoroscopic swallowing examination was performed in conjunction with speech patholo gy. Videofluoroscopic imaging was obtained and reviewed and these are the findings: RADIATION DOSE: 1 minutes 45 seconds of fluoroscopy was used. 1 images saved to PACS. LIMITATIONS: None FINDINGS: The patient was brought into the fluoro room and placed upright on a modified barium swall ow chair. The patient was then given multiple consistencies mixed with barium to swallow under live fluoroscopic video guidance. According to the Speech Pathologist there was no penetration or aspirat ion. Patient demonstrates a delayed swallow. Post swallow residuals in the valleculae and piriform s inuses. IMPRESSION: NO EVIDENCE OF PENETRATION OR ASPIRATION. PLEASE SEE SPEECH PATHOLOGIST REPORT FOR OTHER FINDINGS AND RECOMMENDATIONS. COMMENT: Quality ID [id number]: Final reports for procedures using fluoroscopy that document radiation exp osure indices, or exposure time and number of fluorographic images (if radiation exposure indices are not available) TECHNICAL DOCUMENTATION: JOB ID: [id number] [email or web address]- All Rights Reserved Reading location - IP/workstation name: [email or web address] [id number]
[2019-09-20] MEDS: TAMSULOSIN HCL 0.4 MG CAP.SR.24H PO SCH (21:53)
[2019-09-21] MEDS: HEPARIN SOD (PORCINE) 5,000 UNIT/ML 1 ML VIAL SUBCUT SCH (05:44)
[2019-09-21] MEDS: ACETAMINOPHEN 325 MG TABLET PO PRN (05:45)
[2019-09-21] MEDS: NORMAL SALINE 1000 ML 1,000 ML IV PRN (05:48)
[2019-09-21] MEDS: INSULIN REG, HUMAN 100 UNIT/ML 3 ML VIAL (PYX) SUBCUT SCH ×2 (08:00→11:50)
--- NOTE | 2019-09-21 09:26 | PDOC PROGRESS REPORT ---
Subjective Progress Note for:: 09/21/19 Subjective:: 09/18/2019-no complaints this a.m. 09/19/2019-no complaints 09/20/2019-no complaints. 09/21/2019-nursing states patient's blood sugars running 70s and 80s Reason For Visit: VOMITING, CONFUSION/ALTERED MENTAL STATUS, Physical Exam Vital Signs: Temp Pulse Resp BP Pulse Ox 98.4 F 74 16 137/65 H 95 09/21/19 00:00 09/21/19 07:00 09/21/19 00:00 09/21/19 00:00 09/21/19 00:00 Intake & Output 09/20/19 09/21/19 09/22/19 06:59 06:59 06:59 Intake Total 3768 3650 Output Total 1000 300 Balance 2768 3350 Weight 53.2 kg 52.6 kg General appearance: PRESENT: no acute distress, well-developed, well-nourished Neck exam: ABSENT: carotid bruit, JVD, lymphadenopathy, thyromegaly Respiratory exam: PRESENT: clear to auscultation yue. ABSENT: rales, rhonchi, wheezes Cardiovascular exam: PRESENT: RRR. ABSENT: diastolic murmur, rubs, systolic murmur Pulses: PRESENT: +1 pedal pulses bilateral Vascular exam: PRESENT: normal capillary refill GI/Abdominal exam: PRESENT: normal bowel sounds, soft. ABSENT: distended, guarding, mass, organolmegaly, rebound, tenderness Extremities exam: PRESENT: full ROM. ABSENT: calf tenderness, clubbing, pedal edema Neurological exam: PRESENT: alert, awake. ABSENT: motor sensory deficit Psychiatric exam: PRESENT: appropriate affect, normal mood. ABSENT: homicidal ideation, suicidal ideation Skin exam: PRESENT: dry, intact, warm. ABSENT: cyanosis, rash Results Laboratory Results: 09/20/19 06:38 09/20/19 06:38 09/18/19 00:36 Blood Blood Culture (PCR) - Final Staphylococcus Aureus 09/18/19 00:36 Blood Blood Culture - Final Staphylococcus Aureus 09/17/19 18:21 Blood Blood Culture (PCR) - Final Staphylococcus Aureus 09/17/19 18:21 Blood Blood Culture - Final Staphylococcus Aureus Impressions: Chest X-Ray 09/17/19 19:13 IMPRESSION: Left basilar consolidation - pleural effusion.Moderate gas distention of the colon. Head CT 09/17/19 19:14 IMPRESSION: 1. No acute intracranial findings. 2. Old right MCA distribution infarct and other chronic ischemic changes as on 04/19/2019. Ankle X-Ray 09/17/19 19:19 IMPRESSION: No acute fracture or dislocation. No worrisome bone lesions. Small effusion. Mild lateral soft tissue swelling. No radiopaque foreign body. Elbow X-Ray 09/17/19 19:19 IMPRESSION: Medial soft tissue laceration- swelling. No radiopaque foreign body. Small joint effusion.No acute fracture or dislocation. No worrisome bone lesions. Abdomen X-Ray 09/17/19 20:33 IMPRESSION: 1. Increased bowel gas, but no significant small bowel distention. 2. Possible distal fecal impaction. Modified Barium Swallow 09/20/19 00:00 IMPRESSION: NO EVIDENCE OF PENETRATION OR ASPIRATION. PLEASE SEE SPEECH PATHOLOGIST REPORT FOR OTHER FINDINGS AND RECOMMENDATIONS. Assessment and Plan - Diagnosis (1) Altered mental status Qualifiers: Altered mental status type: disorientation Qualified Code(s): R41.0 - Disorientation, unspecified Is this a current diagnosis for this admission?: Yes Plan: Patient will be admitted to medical floor and neurochecks will be performed every 4 hours to assess his mental status. He will receive routine symptomatic and supportive cares. His altered mental status is expected to improve with resolution of his hyponatremia and correction of his hypoalbuminemia. 09/19/2019-stable -stable continue to follow 09/21/2019-patient at baseline. Stable (2) Hypoalbuminemia Is this a current diagnosis for this admission?: Yes Plan: Patient's albumin will be replaced with 50 g of albumin given over the evening. Comprehensive metabolic profile will be followed on a daily basis. -patient was given albumin overnight. 09/20/2019-Albumin stays low at 1.9. This most likely from malnutrition. Continue to encourage good dietary intake -Albumin remains low. Continue to follow (3) Hyponatremia Is this a current diagnosis for this admission?: Yes Plan: Patient's hyponatremia will be treated with IV normal saline and water restriction. He will be observed closely for attempting excessive oral intake of water by his nursing staff. His sodium will be followed on a regular basis with daily metabolic profiles. 09/19/2019-improved. Sodium is now 126 we will continue to follow -stable continue to follow 09/21/2019-stable (4) History of CVA with residual deficit Is this a current diagnosis for this admission?: Yes Plan: Patient will be evaluated by physical therapy, occupational therapy and speech therapy with consultation to child welfare social worker for discharge planning. 09/19/2019-continue physical and occupational therapy. 09/20/2019-PT and OT 09/21/2019-continue PT and OT-speech eval shows patient with needs pured diet. (5) HTN (hypertension) Qualifiers: Hypertension type: essential hypertension Qualified Code(s): I10 - Essent ial (primary) hypertension Is this a current diagnosis for this admission?: Yes Plan: Patient will be continued on his usual antihypertensive regiment and a cardiac diet. His blood pressure be monitored closely throughout his hospital course. 09/19/2019-continue current antihypertensive regimen 09/20/2019-stable 09/21/2019-stable (6) Diabetes mellitus type 2 in nonobese Is this a current diagnosis for this admission?: Yes Plan: Patient will be continued on his usual diabetic therapy regiment and a diabetic diet. Before meals and at bedtime Accu-Cheks will be obtained with hyperglycemia being treated with sliding scale insulin and a hypoglycemic protocol in place. 09/19/2019-stable at this time continue current therapy along with Accu-Cheks before meals and at bedtime 09/20/2019-stable continue current therapy continue Accu-Cheks before meals and at bedtime with sliding scale coverage. Have also added D5 one half normal saline at 75 mL an hour (7) Hyperlipidemia Qualifiers: Hyperlipidemia type: unspecified Qualified Code(s): E78.5 - Hyperlipidemia, unspecified Is this a current diagnosis for this admission?: Yes Plan: Patient be continued on his usual lipid therapy. 09/19/2019-continue lipid therapy 09/20/2019-stable continue to follow (8) Hx of pemphigoid Is this a current diagnosis for this admission?: Yes Plan: Patient was started on antibiotic therapy for his pemphigoid in the emergency room. Patient will be placed on doxycycline 100 mg p.o. twice daily after meals. A dermatologic consultation may be required to determine any additional appropriate investigational and/or therapeutic intervention. -patient been placed on IV vancomycin he does have a gram-positive cocci in his blood. Also given him Rocephin for possible UTI. Continue to follow 09/20/2019-continue current antibiotic regimen. Wound care per nursing 11 [id number]-stable - Time Time Spent with patient: 15-24 minutes - Inpatient Certification Based on my medical assessment, after consideration of the patient's comorbidities, presenting symptoms, or acuity I expect that the services needed warrant INPATIENT care.: Yes I certify that my determination is in accordance with my understanding of Medicare's requirements for reasonable and necessary INPATIENT services [42 CFR 412.3e].: Yes Medical Necessity: Need for IV Antibiotics
[2019-09-21] MEDS: METFORMIN HCL 500 MG TABLET PO SCH (10:08)
[2019-09-21] MEDS: SIMVASTATIN 40 MG TABLET PO SCH (10:30)
[2019-09-21] MEDS: DOCUSATE SODIUM 100 MG CAPSULE PO SCH (10:30)
[2019-09-21] MEDS: FAMOTIDINE 20 MG TABLET PO SCH (10:30)
[2019-09-21] MEDS: SODIUM BICARBONATE 650 MG TABLET PO SCH (10:30)
[2019-09-21] MEDS: CARVEDILOL 3.125 MG TABLET PO SCH (10:30)
[2019-09-21] MEDS: ASPIRIN 325 MG TABLET PO SCH (10:30)
[2019-09-21] MEDS: CEFTRIAXONE 1 GM/D5W RTU 1 GM/50 ML RTUPB IV SCH (10:30)
[2019-09-21] MEDS ORDERED: DEXTROSE 5%-1/2 NORMAL SALINE 1,000 ML IV PRN (10:43)
[2019-09-21 10:58] VITALS: BP 145/64
[2019-09-21] MEDS ORDERED: LORAZEPAM INJ 2 MG/1 ML VIAL IV PRN (11:57)
[2019-09-21] MEDS ORDERED: ATROPINE SULFATE 1% OPH SOLN 5 ML BOTTLE SL PRN (11:57)
[2019-09-21] MEDS: MORPHINE SULFATE 10 MG/ML INJ IV PRN (17:42)
[2019-09-22] MEDS: MORPHINE SULFATE 10 MG/ML INJ IV PRN ×3 (04:20→18:06)
--- NOTE | 2019-09-22 08:21 | PDOC PROGRESS REPORT ---
Subjective Progress Note for:: 09/22/19 Subjective:: 09/18/2019-no complaints this a.m. 09/19/2019-no complaints 09/20/2019-no complaints. 09/21/2019-nursing states patient's blood sugars running 70s and 80s 09/22/2019-no complaints continues comfort measures Reason For Visit: VOMITING, CONFUSION/ALTERED MENTAL STATUS, Physical Exam Vital Signs: Temp Pulse Resp BP Pulse Ox 97.3 F 72 18 145/64 H 100 09/21/19 08:00 09/21/19 08:00 09/21/19 08:00 09/21/19 08:00 09/21/19 08:00 Intake & Output 09/21/19 09/22/19 09/23/19 06:59 06:59 06:59 Intake Total 3650 1035 Output Total 300 300 Balance 3350 735 Weight 52.6 kg 51.3 kg Results Laboratory Results: 09/20/19 06:38 09/20/19 06:38 Impressions: Chest X-Ray 09/17/19 19:13 IMPRESSION: Left basilar consolidation - pleural effusion.Moderate gas distention of the colon. Head CT 09/17/19 19:14 IMPRESSION: 1. No acute intracranial findings. 2. Old right MCA distribution infarct and other chronic ischemic changes as on 04/19/2019. Ankle X-Ray 09/17/19 19:19 IMPRESSION: No acute fracture or dislocation. No worrisome bone lesions. Small effusion. Mild lateral soft tissue swelling. No radiopaque foreign body. Elbow X-Ray 09/17/19 19:19 IMPRESSION: Medial soft tissue laceration- swelling. No radiopaque foreign body. Small joint effusion.No acute fracture or dislocation. No worrisome bone lesions. Abdomen X-Ray 09/17/19 20:33 IMPRESSION: 1. Increased bowel gas, but no significant small bowel distention. 2. Possible distal fecal impaction. Modified Barium Swallow 09/20/19 00:00 IMPRESSION: NO EVIDENCE OF PENETRATION OR ASPIRATION. PLEASE SEE SPEECH PATHOLOGIST REPORT FOR OTHER FINDINGS AND RECOMMENDATIONS. Assessment and Plan - Diagnosis (1) Comfort measures only status Is this a current diagnosis for this admission?: Yes Plan: 09/22/2019-after discussion with patient family history patient made comfort measures. Continue PRN Ativan and morphine and atropine. (2) Altered mental status Qualifiers: Altered mental status type: disorientation Qualified Code(s): R41.0 - Disorientation, unspecified Is this a current diagnosis for this admission?: Yes (3) Hypoalbuminemia Is this a current diagnosis for this admission?: Yes (4) Hyponatremia Is this a current diagnosis for this admission?: Yes (5) History of CVA with residual deficit Is this a current diagnosis for this admission?: Yes (6) HTN (hypertension) Qualifiers: Hypertension type: essential hypertension Qualified Code(s): I10 - Essential (primary) hypertension Is this a current diagnosis for this admission?: Yes (7) Diabetes mellitus type 2 in nonobese Is this a current diagnosis for this admission?: Yes (8) Hyperlipidemia Qualifiers: Hyperlipidemia type: unspecified Qualified Code(s): E78.5 - Hyperlipidemia, unspecified Is this a current diagnosis for this admission?: Yes (9) Hx of pemphigoid Is this a current diagnosis for this admission?: Yes - Time Time Spent with patient: Less than 15 minutes - Inpatient Certification Based on my medical assessment, after consideration of the patient's comorbidities, presenting symptoms, or acuity I expect that the services needed warrant INPATIENT care.: Yes I certify that my determination is in accordance with my understanding of Medicare's requirements for reasonable and necessary INPATIENT services [42 CFR 412.3e].: Yes Medical Necessity: Other - Comfort measures
[2019-09-22] MEDS ORDERED: LORAZEPAM INJ 2 MG/1 ML VIAL IM PRN (19:00)
[2019-09-22] MEDS ORDERED: MORPHINE SULFATE 10 MG/ML INJ IM PRN (19:00)
--- NOTE | 2019-09-23 10:14 | PDOC PROGRESS REPORT ---
Subjective Progress Note for:: 09/23/19 Subjective:: 09/18/2019-no complaints this a.m. 09/19/2019-no complaints 09/20/2019-no complaints. 09/21/2019-nursing states patient's blood sugars running 70s and 80s 09/22/2019-no complaints continues comfort measures 09/23/2019-no complaints Reason For Visit: VOMITING, CONFUSION/ALTERED MENTAL STATUS, Physical Exam Vital Signs: Temp Pulse Resp BP Pulse Ox 97.3 F 72 18 145/64 H 100 09/21/19 08:00 09/21/19 08:00 09/21/19 08:00 09/21/19 08:00 09/21/19 08:00 Intake & Output 09/22/19 09/23/19 09/24/19 06:59 06:59 06:59 Intake Total 1035 290 Output Total 300 50 Balance 735 240 Weight 51.3 kg 51.2 kg Results Laboratory Results: 09/20/19 06:38 09/20/19 06:38 Impressions: Chest X-Ray 09/17/19 19:13 IMPRESSION: Left basilar consolidation - pleural effusion.Moderate gas distention of the colon. Head CT 09/17/19 19:14 IMPRESSION: 1. No acute intracranial findings. 2. Old right MCA distribution infarct and other chronic ischemic changes as on 04/19/2019. Ankle X-Ray 09/17/19 19:19 IMPRESSION: No acute fracture or dislocation. No worrisome bone lesions. Small effusion. Mild lateral soft tissue swelling. No radiopaque foreign body. Elbow X-Ray 09/17/19 19:19 IMPRESSION: Medial soft tissue laceration- swelling. No radiopaque foreign body. Small joint effusion.No acute fracture or dislocation. No worrisome bone lesions. Abdomen X-Ray 09/17/19 20:33 IMPRESSION: 1. Increased bowel gas, but no significant small bowel distention. 2. Possible distal fecal impaction. Modified Barium Swallow 09/20/19 00:00 IMPRESSION: NO EVIDENCE OF PENETRATION OR ASPIRATION. PLEASE SEE SPEECH PATHOLOGIST REPORT FOR OTHER FINDINGS AND RECOMMENDATIONS. Assessment and Plan - Diagnosis (1) Comfort measures only status Is this a current diagnosis for this admission?: Yes Plan: 09/22/2019-after discussion with patient family history patient made comfort measures. Continue PRN Ativan and morphine and atropine. 09/23/2019-comfort measures continue. Discussed with family about home with hospice (2) Altered mental status Qualifiers: Altered mental status type: disorientation Qualified Code(s): R41.0 - Disorientation, unspecified Is this a current diagnosis for this admission?: Yes (3) Hypoalbuminemia Is this a current diagnosis for this admission?: Yes (4) Hyponatremia Is this a current diagnosis for this admission?: Yes (5) History of CVA with residual deficit Is this a current diagnosis for this admission?: Yes (6) HTN (hypertension) Qualifiers: Hypertension type: essential hypertension Qualified Code(s): I10 - Essential (primary) hypertension Is this a current diagnosis for this admission?: Yes (7) Diabetes mellitus type 2 in nonobese Is this a current diagnosis for this admission?: Yes (8) Hyperlipidemia Qualifiers: Hyperlipidemia type: unspecified Qualified Code(s): E78.5 - Hyperlipidemia, unspecified Is this a current diagnosis for this admission?: Yes (9) Hx of pemphigoid Is this a current diagnosis for this admission?: Yes - Time Time Spent with patient: Less than 15 minutes - Inpatient Certification Based on my medical assessment, after consideration of the patient's comorbidities, presenting symptoms, or acuity I expect that the services needed warrant INPATIENT care.: Yes I certify that my determination is in accordance with my understanding of Medicare's requirements for reasonable and necessary INPATIENT services [42 CFR 412.3e].: Yes Medical Necessity: Other - Comfort measures
[2019-09-23] MEDS ORDERED: OXYCODONE HCL IR 5 MG TABLET PO PRN (11:07)
[2019-09-23] MEDS ORDERED: MORPHINE SULFATE 10 MG/5 ML ORAL SOLUTION UDCUP PO PRN (11:20)
--- NOTE | 2019-09-23 12:57 | PDOC DISCHARGE SUMMARY ---
Impression - Admit/DC Date/PCP Admission Date/Primary Care Provider: 09/17/19 21:21 Discharge Date: 09/23/19 - Discharge Diagnosis (1) Comfort measures only status Is this a current diagnosis for this admission?: Yes (2) Altered mental status Is this a current diagnosis for this admission?: Yes (3) Hypoalbuminemia Is this a current diagnosis for this admission?: Yes (4) Hyponatremia Is this a current diagnosis for this admission?: Yes (5) History of CVA with residual deficit Is this a current diagnosis for this admission?: Yes (6) HTN (hypertension) Is this a current diagnosis for this admission?: Yes (7) Diabetes mellitus type 2 in nonobese Is this a current diagnosis for this admission?: Yes (8) Hyperlipidemia Is this a current diagnosis for this admission?: Yes (9) Hx of pemphigoid Is this a current diagnosis for this admission?: Yes - Additional Information Resuscitation Status: Do Not Resuscitate Discharge Diet: As Tolerated Discharge Activity: Activity As Tolerated History of Present Illiness History of Present Illness: ZOEY GRIER is a 78 year old male who presented to the ER with vomiting Hospital Course Hospital Course: Patient was admitted for vomiting with altered mental status. Patient was sent to the hospital by his girlfriend who did not accompany him but stated to EMS that he had were reportedly vomited several times over last several days prior to arrival. She is also added increasing confusion over the last several days as well. In the emergency room he was found to be oriented but unable to provide reliable meaningful historical information. He is found to have anemia, hypo-natremia and an albumin of 1.5. Patient is severely malnourished has a h istory of pemphigoid and overall is in poor physical health. Throughout his stay patient showed no improvement despite IV antibiotics or other therapies. I had a long discussion with patient's family made patient comfort measures. This time patient will go home with hospice. Patient and family all in agreement with plan of care. Physical Exam Vital Signs: Temp Pulse Resp BP Pulse Ox 97.3 F 72 18 145/64 H 100 09/21/19 08:00 09/21/19 08:00 09/21/19 08:00 09/21/19 08:00 09/21/19 08:00 Intake & Output 09/22/19 09/23/19 09/24/19 06:59 06:59 06:59 Intake Total 1035 290 Output Total 300 50 Balance 735 240 Weight 51.3 kg 51.2 kg General appearance: PRESENT: no acute distress, well-developed, well-nourished Neck exam: ABSENT: carotid bruit, JVD, lymphadenopathy, thyromegaly Respiratory exam: PRESENT: clear to auscultation yue. ABSENT: rales, rhonchi, wheezes Cardiovascular exam: PRESENT: RRR. ABSENT: diastolic murmur, rubs, systolic murmur Pulses: PRESENT: +1 pedal pulses bilateral Vascular exam: PRESENT: normal capillary refill Extremities exam: PRESENT: full ROM. ABSENT: calf tenderness, clubbing, pedal edema Neurological exam: PRESENT: awake Psychiatric exam: PRESENT: appropriate affect, normal mood. ABSENT: homicidal ideation, suicidal ideation Skin exam: PRESENT: other - Pemphigoid Results Laboratory Results: WBC 8.1 10^3/uL (4.0-10.5) 09/20/19 06:38 RBC 3.27 10^6/uL (4.35-5.55) L 09/20/19 06:38 Hgb 8.7 g/dL (13.5-17.0) L 09/20/19 06:38 Hct 26.8 % (37.9-51.0) L 09/20/19 06:38 MCV 82 fl (80-97) 09/20/19 06:38 MCH 26.7 pg (27.0-33.4) L 09/20/19 06:38 MCHC 32.7 g/dL (32.0-36.0) 09/20/19 06:38 RDW 15.3 % (11.5-14.0) H 09/20/19 06:38 Plt Count 273 10^3/uL (150-450) 09/20/19 06:38 Lymph % (Auto) 7.0 % (13-45) L 09/17/19 18:21 [place] % (Auto) 5.9 % (3-13) 09/17/19 18:21 Eos % (Auto) 0.0 % (0-6) 09/17/19 18:21 Baso % (Auto) 0.1 % (0-2) 09/17/19 18:21 Absolute Neuts (auto) 9.5 10^3/uL (1.7-8.2) H 09/17/19 18:21 Absolute Lymphs (auto) 0.8 10^3/uL (0.5-4.7) 09/17/19 18:21 Absolute Monos (auto) 0.6 10^3/uL (0.1-1.4) 09/17/19 18:21 Absolute Eos (auto) 0.0 10^3/uL (0.0-0.6) 09/17/19 18:21 Absolute Basos (auto) 0.0 10^3/uL (0.0-0.2) 09/17/19 18:21 Seg Neutrophils % 87.0 % (42-78) H 09/17/19 18:21 PT 17.1 SEC (11.4-15.4) H 09/17/19 18:21 INR 1.38 09/17/19 18:21 Sodium 133.8 mmol/L (137-145) L 09/20/19 06:38 Potassium 3.8 mmol/L (3.6-5.0) 09/20/19 06:38 Chloride 103 mmol/L (98-107) 09/20/19 06:38 Carbon Dioxide 27 mmol/L (22-30) 09/20/19 06:38 Anion Gap 4 (5-19) L 09/20/19 06:38 BUN 6 mg/dL (7-20) L 09/20/19 06:38 Creatinine 0.40 mg/dL (0.52-1.25) L 09/20/19 06:38 Est GFR ( Amer) > 60 (>60) 09/20/19 06:38 Est GFR (MDRD) Non-Af > 60 (>60) 09/20/19 06:38 Glucose 72 mg/dL (75-110) L 09/20/19 06:38 POC Glucose 83 mg/dL (70-110) 09/21/19 06:10 Lactic Acid 1.5 mmol/L (0.7-2.1) 09/17/19 18:21 Calcium 7.3 mg/dL (8.4-10.2) L 09/20/19 06:38 Magnesium 1.9 mg/dL (1.6-2.3) 09/20/19 06:38 Total Bilirubin 0.4 mg/dL (0.2-1.3) 09/20/19 06:38 Direct Bilirubin 0.2 mg/dL (0.0-0.4) 09/20/19 06:38 Neonat Total Bilirubin Not Reportable 09/20/19 06:38 Neonat Direct Bilirubin Not Reportable 09/20/19 06:38 Neonat Indirect Bili Not Reportable 09/20/19 06:38 AST 31 U/L (17-59) 09/20/19 06:38 ALT 21 U/L (<50) 09/20/19 06:38 Alkaline Phosphatase 77 U/L (38-126) 09/20/19 06:38 Total Protein 4.5 g/dL (6.3-8.2) L 09/20/19 06:38 Albumin 1.9 g/dL (3.5-5.0) L 09/20/19 06:38 TSH 1.09 uIU/mL (0.47-4.68) 09/18/19 05:27 Urine Color MARTHA 09/18/19 13:00 Urine Appearance TURBID 09/18/19 13:00 Urine pH 6.0 (5.0-9.0) 09/18/19 13:00 Ur Specific Lucinda 1.028 09/18/19 13:00 Urine Protein 100 mg/dL (NEGATIVE) H 09/18/19 13:00 Urine Glucose (UA) 150 mg/dL (NEGATIVE) H 09/18/19 13:00 Urine Ketones TRACE mg/dL (NEGATIVE) H 09/18/19 13:00 Urine Blood LARGE (NEGATIVE) H 09/18/19 13:00 Urine Nitrite POSITIVE (NEGATIVE) H 09/18/19 13:00 Urine Bilirubin SMALL (NEGATIVE) H 09/18/19 13:00 Urine Urobilinogen 4.0 mg/dL (<2.0) H 09/18/19 13:00 Ur Leukocyte Esterase NEGATIVE (NEGATIVE) 09/18/19 13:00 Urine WBC (Auto) 43 /HPF 09/18/19 13:00 Urine RBC (Auto) >182 /HPF 09/18/19 13:00 Amorphous Sediment Auto TRACE /HPF 09/18/19 13:00 Urine Mucus (Auto) MANY /LPF 09/18/19 13:00 Urine Ascorbic Acid NEGATIVE (NEGATIVE) 09/18/19 13:00 POC Stool Occult Blood NEGATIVE (NEGATIVE) 09/17/19 19:05 Stl C. Difficile GDH Ag NEGATIVE (NEGATIVE) 09/19/19 17:45 Stl C.difficile Tox A&B NEGATIVE (NEGATIVE) 09/19/19 17:45 Time Trough Drawn 2137 09/19/19 21:37 Vancomycin Trough 9.6 ug/mL (5.0-20.0) 09/19/19 21:37 Impressions: Chest X-Ray 09/17/19 19:13 IMPRESSION: Left basilar consolidation - pleural effusion.Moderate gas distention of the colon. Head CT 09/17/19 19:14 IMPRESSION: 1. No acute intracranial findings. 2. Old right MCA distribution infarct and other chronic ischemic changes as on 04/19/2019. Ankle X-Ray 09/17/19 19:19 IMPRESSION: No acute fracture or dislocation. No worrisome bone lesions. Small effusion. Mild lateral soft tissue swelling. No radiopaque foreign body. Elbow X-Ray 09/17/19 19:19 IMPRESSION: Medial soft tissue laceration- swelling. No radiopaque foreign body. Small joint effusion.No acute fracture or dislocation. No worrisome bone lesions. Abdomen X-Ray 09/17/19 20:33 IMPRESSION: 1. Increased bowel gas, but no significant small bowel distention. 2. Possible distal fecal impaction. Modified Barium Swallow 09/20/19 00:00 IMPRESSION: NO EVIDENCE OF PENETRATION OR ASPIRATION. PLEASE SEE SPEECH PATHOLOGIST REPORT FOR OTHER FINDINGS AND RECOMMENDATIONS. Plan Time Spent: Greater than 30 Minutes Stroke Is this a Stroke Patient?: No Acute Heart Failure - Is this a Heart Failure Patient?: No
== END 2019-09-23 15:11 | disposition hospice, home (50) | DRG 640 ==
LOC: ER 18:09 → OBSVTOIN 21:21 → EH 21:21 → INTOOBSV 21:21 → 4N 09-18
PROVIDERS: ADMIT Emergency Medicine; ATTEND Emergency Medicine
DX: E87.1 Hypo-osmolality and hyponatremia (principal); E43 Unspecified severe protein-calorie malnutrition; I69.354 Hemiplegia and hemiparesis following cerebral infarction affecting left non-dominant side; L10.89 Other pemphigus; Z68.1 Body mass index [BMI] 19.9 or less, adult; E88.09 Other disorders of plasma-protein metabolism, not elsewhere classified; E78.5 Hyperlipidemia, unspecified; E11.9 Type 2 diabetes mellitus without complications; Z51.5 Encounter for palliative care; D64.9 Anemia, unspecified; R41.0 Disorientation, unspecified; I10 Essential (primary) hypertension; F32.9 Major depressive disorder, single episode, unspecified; Z66 Do not resuscitate; Z87.891 Personal history of nicotine dependence; Z82.3 Family history of stroke; Z83.3 Family history of diabetes mellitus; Z88.8 Allergy status to other drugs, medicaments and biological substances
CPT/HCPCS: 36415; 70450; 71045; 74019; 74230; 80053; 80202; 81001; 82962; 83605; 83735; 84443; 85025; 85027; 85610; 87040; 87077; 87150; 87186; 87324; 87449; 93005; 93010; 99285; J0696; J1644; J1815; J2270; J2930; J3370; J3475; J3490; J7030; J7060; P9047